=== PATIENT | male | born 1945 | race Caucasian/White ===

== ENCOUNTER 2024-12-21 14:16 | Inpatient (IN) | payer MEDICARE, BC, OTHER ==
[2024-12-21 15:34] LABS: Basophils % (A) 0 %; Eosinophils # (A) 0.2 k/uL (0-0.7); Eosinophils % (A) 2 %; HCT 43.9 % (39.0-53.0); HGB 14.9 gm/dL (13.0-17.5); Lymphocytes # (A) 1.6 k/uL (1.0-4.8); Lymphocytes % (A) 18 %; MCH 32.9 pg (25.0-35.0); MCHC 34.1 g/dL (31.0-37.0); MCV 96.7 fL (80.0-100.0); Monocytes # (A) 0.7 k/uL (0-1.0); Monocytes % (A) 9 %; Neutrophils # (A) 5.8 k/uL (1.3-7.7); Neutrophils % (A) 69 %; Platelet Count 232 k/uL (150-450); RBC 4.54 m/uL (4.30-5.90); RDW 13.2 % (11.5-15.5); WBC 8.5 k/uL (3.8-10.6)
[2024-12-21 15:50] LABS: INR 0.9 (<1.2); Partial Thromboplastin Time 22.8 sec (22.0-30.0); Prothrombin Time 10.3 sec (10.0-12.5)
[2024-12-21 15:54] LABS: Potassium 4.5 mmol/L (3.5-5.1)
[2024-12-21 15:55] LABS: ALT 25 U/L (4-49); AST 25 U/L (17-59); African American GFR (CKD) 71 (>60 ml/min/1.73 sqM); Albumin 3.8 g/dL (3.5-5.0); Alkaline Phosphatase 62 U/L (38-126); Anion Gap 8 mmol/L; Blood Urea Nitrogen 30 mg/dL (9-20); Calcium 9.5 mg/dL (8.4-10.2); Carbon Dioxide 26 mmol/L (22-30); Chloride 103 mmol/L (98-107); Creatine Kinase 83 U/L (55-170); Glucose 82 mg/dL (74-99); Non-African American GFR(CKD) 61 (>60 ml/min/1.73 sqM); Sodium 137 mmol/L (137-145); Total Bilirubin 0.4 mg/dL (0.2-1.3); Total Protein 6.5 g/dL (6.3-8.2)
--- NOTE | 2024-12-21 16:23 | XR ---
EXAMINATION TYPE: XR chest 2V DATE OF EXAM: 12/21/2024 4:12 PM COMPARISON: None TECHNIQUE: XR chest 2V Frontal and lateral views of the chest. CLINICAL INDICATION:Male, 79 years old with history of altered mental status; FINDINGS: Lungs/Pleura: There is no evidence of pleural effusion, focal consolidation, or pneumothorax. Pulmonary vascularity: Pulmonary vascular congestion. Heart/mediastinum: Cardiomediastinal silhouette is enlarged. Musculoskeletal: No acute osseous pathology. IMPRESSION: Cardiomegaly and mild pulmonary vascular congestion. Correlate with BNP for congestive heart failure. [facility], , 12/21/2024 4:21 PM
--- NOTE | 2024-12-21 16:36 | CT ---
EXAMINATION TYPE: CT brain wo con DATE OF EXAM: 12/21/2024 COMPARISON: None CLINICAL INDICATION: Male, 79 years old with history of Neuro deficit, acute, stroke suspected; PHH, neuro def. CT DLP: 1825 mGycm Automated exposure control for dose reduction was used. Findings: The ventricles, basal cisterns and sulci over the convexities are moderately enlarged consistent with moderate generalized atrophy. There is moderate decreased density in the periventricular white matte r consistent with chronic ischemic white matter demyelination. There is a remote lacunar infarct in the right basal ganglia. There is no mass effect or shift to the midline structures. There is no acute intra or extra-axial hemorrhage.. The posterior fossa including the brainstem, fourth ventricle and cerebellar pontine angles appear no rmal. Intraorbital contents appear normal and symmetric. There are minor chronic inflammatory changes in the left maxillary and ethmoid air cells. There is fl uid in the mastoid air cells bilaterally. The calvarium is intact. IMPRESSION: 1. No acute bleed or mass effect. 2. Moderate generalized atrophy and ischemic white matter demyelination. 3. Remote lacunar infarct in the right basal ganglia. 4. Inflammatory changes in the mastoid air cells and paranasal sinuses as described above. [facility], , 12/21/2024 4:33 PM
--- NOTE | 2024-12-21 17:07 | CT ---
EXAMINATION TYPE: CT angio head neck DATE OF EXAM: 12/21/2024 4:39 PM COMPARISON: None. CLINICAL INDICATION: Male, 79 years old with history of Neuro deficit, acute, stroke suspected, Visio n changes, neuro def. TECHNIQUE: CTA scan is performed with axial images are obtained, coronal and sagittal reformatted sugey ges are reviewed. 3-D reconstructed images are created on an independent workstation and reviewed. [place] [facility] [place] reviewed. NASCET criteria was used in interpretation of this exam? Contrast used:65 mL of Isovue 370 without and with IV Contrast, (none if empty) Oral contrast used: (none if empty) CT DLP: 1825 mGycm, Automated exposure control for dose reduction was used. FINDINGS: Carotid/Vascular Structures: There is a 3 vessel arch. Common carotid arteries bifurcate into internal and external carotid arteries without significant valery w limiting stenosis. Right vertebral artery is dominant. Internal carotid arteries and vertebral arteries are patent to the skull base. Cervical of Main: Vertebral basilar system appears normal. Posterior cerebral vasculature is unrema rkable. Internal carotid arteries bifurcate normally into A1 and M1 segments. A2 segments are normal. The anterior communicating artery is patent. Posterior communicating artery is not identified. IMPRESSION: 1. No flow-limiting stenosis bilateral carotid bifurcations. 2. Normal [place] of Main [facility], Workstation: [facility], 12/21/2024 5:04 PM
--- NOTE | 2024-12-21 17:37 | ED ---
General Adult HPI - General Chief complaint: Neuro Symptoms/Deficit Stated complaint: poss stroke Time Seen by Provider: 12/21/24 14:20 Source: family, Caregiver Mode of arrival: ambulatory Limitations: no limitations - History of Present Illness Initial comments: 79-year-old male who presents to the emergency department from the ophthalmology office. Niece had taken the patient into the office as he was reporting to visual disturbance in his eyes. This has been going on for upwards of 3 months. 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 The web site specialist recommended that the patient proceed immediately to the hospital for stroke evaluation. He denies any numbness, tingling or weakness in his extremities. No speech changes. No history of stroke. Patient does not take any blood thinners. Patient cannot provide much history due to his developmental delay but niece at bedside does provide history. No other alleviating, precipitating or modifying factors - Related Data Home Medications Medication Instructions Recorded Confirmed Aspirin EC [Ecotrin Low Dose] 81 mg PO DAILY 12/21/24 12/21/24 Cefdinir 300 mg PO Q12HR 12/21/24 12/21/24 Cholecalciferol (Vitamin D3) 75 mcg PO DAILY 12/21/24 12/21/24 [Vitamin D3 (3000 Iu)] Levothyroxine Sodium [Synthroid] 25 mcg PO DAILY 12/21/24 12/21/24 Losartan [Cozaar] 50 mg PO DAILY 12/21/24 12/21/24 Allergies Allergy/AdvReac Type Severity Reaction Status Date / Time No Known Allergies Allergy Verified 12/21/24 17:41 Review of Systems ROS Statement: Those systems with pertinent positive or pertinent negative responses have been documented in the HPI. ROS Other: All systems not noted in ROS Statement are negative. Past Medical History Past Medical History: Unable to Obtain Additional Past Medical History / Comment(s): "born handicapped" History of Any Multi-Drug Resistant Organisms: None Reported Past Surgical History: Unable to Obtain Additional Past Surgical History / Comment(s): cataract sx Past Psychological History: No Psychological Hx Reported Smoking Status: Never smoker Past Alcohol Use History: None Reported Past Drug Use History: None Reported General Exam Limitations: no limitations Course Vital Signs 12/21/24 12/21/24 12/21/24 14:18 16:02 17:58 Temperature 97.8 F 98.3 F 97.8 F Pulse Rate 75 75 73 Respiratory 20 18 20 Rate Blood Pressure 143/88 149/91 146/91 O2 Sat by Pulse 94 L 97 97 Oximetry Medical Decision Making - Medical Decision Making Was pt. sent in by a medical professional or institution (, MORGAN, OPHTHALMIC DISPENSER, urgent care, hospital, or custodial...) When possible be specific @ -[No] Did you speak to anyone other than the patient for history (EMS, parent, family, police, friend...)? What history was obtained from this source @ -[No] Did you review nursing and triage notes (agree or disagree)? Why? @ -[I reviewed and agree with nursing and triage notes] Were old charts reviewed (outside hosp., previous admission, EMS record, old EKG, old radiological studies, urgent care reports/EKG's, custodial records)? Report findings @ -[No old charts were reviewed] Differential Diagnosis (chest pain, altered mental status, abdominal pain women, abdominal pain men, vaginal bleeding, weakness, fever, dyspnea, syncope, headache, dizziness, GI bleed, back pain, seizure, CVA, palpatations, mental health, musculoskeletal)? @ -[not applicable] EKG interpreted by me (3pts min.). @ -Yes and demonstrates sinus rhythm with a rate of 72. Parable 189. QRS 94. QTc of 409. Inverted T wave in lead III and aVF. No acute ST segment elevations X-rays interpreted by me (1pt min.). @ -[None done] CT interpreted by me (1pt min.). @ -[None done] U/S interpreted by me (1pt. min.). @ -[None done] What testing was considered but not performed or refused? (CT, X-rays, U/S, labs)? Why? @ -[None] What meds were considered but not given or refused? Why? @ -[None] Did you discuss the management of the patient with other professionals (professionals i.e. , MORGAN, OPHTHALMIC DISPENSER, lab, RT, psych nurse, social service assistant, chief crew scheduler, teacher, flight communications officer, pillowcase sewer)? Give summary @ -[No] Was smoking cessation discussed for >3mins.? @ -[No] Was critical care preformed (if so, how long)? @ -[No] Were there social determinants of health that impacted care today? How? (Homelessness, low income, unemployed, alcoholism, drug addiction, transportation, low edu. Level, literacy, decrease access to med. care, snf, rehab)? @ -[No] Was there de-escalation of care discussed even if they declined (Discuss DNR or withdrawal of care, Hospice)? DNR status @ -[No] What co-morbidities impacted this encounter? (DM, HTN, Smoking, COPD, CAD, Cancer, CVA, ARF, Chemo, Hep., AIDS, mental health diagnosis, sleep apnea, mor bid obesity)? @ -[None] Was patient admitted / discharged? Hospital course, mention meds given and route, prescriptions, significant lab abnormalities, going to OR and other pertinent info. @ -[hospital course] Undiagnosed new problem with uncertain prognosis? @ -[No] Drug Therapy requiring intensive monitoring for toxicity (Heparin, Nitro, Insulin, Cardizem)? @ -[No] Were any procedures done? @ -[No] Diagnosis/symptom? @ -[default] Acute, or Chronic, or Acute on Chronic? @ -[default] Uncomplicated (without systemic symptoms) or Complicated (systemic symptoms)? @ -[default] Side effects of treatment? @ -[No] Exacerbation, Progression, or Severe Exacerbation? @ -[No] Poses a threat to life or bodily function? How? (Chest pain, USA, GA, pneumonia, PE, COPD, DKA, ARF, appy, cholecystitis, CVA, Diverticulitis, Homicidal, Suicidal, threat to staff... and all critical care pts) @ -[No] - Lab Data Result diagrams: 12/21/24 15:16 12/21/24 15:16 Lab Results 12/21/24 12/21/24 12/21/24 Range/Units 15:16 15:16 15:16 WBC 8.5 (3.8-10.6) k/uL RBC 4.54 (4.30-5.90) m/uL Hgb 14.9 (13.0-17.5) gm/dL Hct 43.9 (39.0-53.0) % MCV 96.7 (80.0-100.0) fL MCH 32.9 (25.0-35.0) pg MCHC 34.1 (31.0-37.0) g/dL RDW 13.2 (11.5-15.5) % Plt Count 232 (150-450) k/uL MPV 8.0 Neutrophils % 69 % Lymphocytes % 18 % Monocytes % 9 % Eosinophils % 2 % Basophils % 0 % Neutrophils # 5.8 (1.3-7.7) k/uL Lymphocytes # 1.6 (1.0-4.8) k/uL Monocytes # 0.7 (0-1.0) k/uL Eosinophils # 0.2 (0-0.7) k/uL Basophils # 0.0 (0-0.2) k/uL PT 10.3 (10.0-12.5) sec INR 0.9 (<1.2) APTT 22.8 (22.0-30.0) sec Sodium 137 (137-145) mmol/L Potassium 4.5 (3.5-5.1) mmol/L Chloride 103 (98-107) mmol/L Carbon Dioxide 26 (22-30) mmol/L Anion Gap 8 mmol/L BUN 30 H (9-20) mg/dL Creatinine 1.15 (0.66-1.25) mg/dL Est GFR (CKD-EPI)AfAm 71 (>60 ml/min/1.73 sqM) Est GFR (CKD-EPI)NonAf 61 (>60 ml/min/1.73 sqM) Glucose 82 (74-99) mg/dL Calcium 9.5 (8.4-10.2) mg/dL Total Bilirubin 0.4 (0.2-1.3) mg/dL AST 25 (17-59) U/L ALT 25 (4-49) U/L Alkaline Phosphatase 62 (38-126) U/L Creatine Kinase 83 (55-170) U/L Troponin I (0.000-0.034) ng/mL Total Protein 6.5 (6.3-8.2) g/dL Albumin 3.8 (3.5-5.0) g/dL 12/21/24 Range/Units 15:16 WBC (3.8-10.6) k/uL RBC (4.30-5.90) m/uL Hgb (13.0-17.5) gm/dL Hct (39.0-53.0) % MCV (80.0-100.0) fL MCH (25.0-35.0) pg MCHC (31.0-37.0) g/dL RDW (11.5-15.5) % Plt Count (150-450) k/uL MPV Neutrophils % % Lymphocytes % % Monocytes % % Eosinophils % % Basophils % % Neutrophils # (1.3-7.7) k/uL Lymphocytes # (1.0-4.8) k/uL Monocytes # (0-1.0) k/uL Eosinophils # (0-0.7) k/uL Basophils # (0-0.2) k/uL PT (10.0-12.5) sec INR (<1.2) APTT (22.0-30.0) sec Sodium (137-145) mmol/L Potassium (3.5-5.1) mmol/L Chloride (98-107) mmol/L Carbon Dioxide (22-30) mmol/L Anion Gap mmol/L BUN (9-20) mg/dL Creatinine (0.66-1.25) mg/dL Est GFR (CKD-EPI)AfAm (>60 ml/min/1.73 sqM) Est GFR (CKD-EPI)NonAf (>60 ml/min/1.73 sqM) Glucose (74-99) mg/dL Calcium (8.4-10.2) mg/dL Total Bilirubin (0.2-1.3) mg/dL AST (17-59) U/L ALT (4-49) U/L Alkaline Phosphatase (38-126) U/L Creatine Kinase (55-170) U/L Troponin I <0.012 (0.000-0.034) ng/mL Total Protein (6.3-8.2) g/dL Albumin (3.5-5.0) g/dL Disposition Clinical Impression: Cerebrovascular accident (CVA), Quadrantanopsia Disposition: ADMITTED IP TO THIS [facility] Condition: Stable Is patient prescribed a controlled substance at d/c from ED?: No Referrals: Olive Raymundo MD [Primary Care Provider] - 1-2 days Time of Disposition: 18:19 Decision to Admit Reason: Admit from EC Decision Date: 12/21/24 Decision Time: 18:19
[2024-12-21] MEDS: ASPIRIN 325 MG TAB PO STA (19:01)
[2024-12-21] MEDS: ATORVASTATIN 40 MG TAB PO SCH (19:01)
[2024-12-21] MEDS: CEFDINIR 300 MG CAP PO SCH (20:28)
[2024-12-22] MEDS: LEVOTHYROXINE 25 MCG TAB PO SCH (06:42)
[2024-12-22] MEDS: ASPIRIN 81 MG PO SCH (09:22)
[2024-12-22] MEDS: LOSARTAN 50 MG TAB PO SCH (09:22)
[2024-12-22] MEDS: CHOLECALCIFEROL 25 MCG (1000 IU) TABLET PO SCH (09:22)
--- NOTE | 2024-12-22 10:07 | P.HPIM ---
History of Present Illness H&P Date: 12/22/24 Norman Whitaker, is a 79-year-old male who presented to [facility] emergency room sent in from the ophthalmology office due to vision deficit He was evaluated in the emergency room vital examination on presentation revealed temp 97.7, heart rate 83, respiratory rate 18, blood pressure 135/89 with a pulse ox of 96% on room air Laboratory data reveals white blood cell 8.5, hemoglobin 14.9, creatinine 1.15 and bun 30 Testing in the emergency room revealed CTA showing no flow-limiting stenosis bilateral carotid bifurcations and normal [place] of Main CT scan showing no acute bleed or mass effect moderate generalized atrophy and ischemic white matter demyelination remote [place] nerve infarct in the right basal ganglia inflammatory changes in the mastoid air cells impair nasal sinuses as described above Patient was admitted to medical floor for further evaluation and treatment. Neurology services have been consulted. PT OT services consulted Past medical history is significant for thyroid disorder. Developmental delay, recent sinusitis, hypothyroidism and essential hypertension. On review of systems patient is alert and oriented x 3. Patient denies any nausea vomiting or diarrhea. Patient denies chest pain or shortness of breath Review of Systems Please refer to HPI otherwise unremarkable Past Medical History Past Medical History: Thyroid Disorder Additional Past Medical History / Comment(s): "born handicapped" History of Any Multi-Drug Resistant Organisms: None Reported Past Surgical History: Unable to Obtain Additional Past Surgical History / Comment(s): cataract sx Past Anesthesia/Blood Transfusion Reactions: No Reported Reaction, Unable to Obtain Past Psychological History: No Psychological Hx Reported, Unable to Obtain Smoking Status: Never smoker Past Alcohol Use History: None Reported Past Drug Use History: None Reported Medications and Allergies Home Medications Medication Instructions Recorded Confirmed Type Aspirin EC [Ecotrin Low Dose] 81 mg PO DAILY 12/21/24 12/21/24 History Cefdinir 300 mg PO Q12HR 12/21/24 12/21/24 History Cholecalciferol (Vitamin D3) 75 mcg PO DAILY 12/21/24 12/21/24 History [Vitamin D3 (3000 Iu)] Levothyroxine Sodium [Synthroid] 25 mcg PO DAILY 12/21/24 12/21/24 History Losartan [Cozaar] 50 mg PO DAILY 12/21/24 12/21/24 History Allergies Allergy/AdvReac Type Severity Reaction Status Date / Time No Known Allergies Allergy Verified 12/21/24 17:41 Physical Exam Vitals: Vital Signs Temp Pulse Pulse Resp BP BP Pulse Ox 12/22/24 04:00 97.7 F 75 15 110/69 97 12/22/24 02:00 67 19 12/22/24 00:00 98.3 F 96 16 121/74 98 12/21/24 21:24 97.7 F 67 19 144/93 96 12/21/24 20:16 70 18 118/80 93 L 12/21/24 18:59 71 20 141/93 95 12/21/24 17:58 97.8 F 73 20 146/91 97 12/21/24 16:02 98.3 F 75 18 149/91 97 12/21/24 14:18 97.8 F 75 20 143/88 94 L Intake and Output 12/21/24 12/22/24 12/22/24 22:59 06:59 14:59 Intake Total 240 480 Balance 240 480 Intake: Oral 240 480 Other: Voiding Method Urinal Urinal Weight 79.379 kg 79.5 kg In general patient is alert and oriented x 3 in no distress HEENT head normocephalic and atraumatic Neck is supple no JVD no goiter no lymphadenopathy no carotid bruit Chest examination is clear to auscultation no crackles no wheezing Cardiac exam reveals regular heart sounds S1 and S2 no gallops no murmurs Abdomen is soft nontender no organomegaly with normal bowel sounds Extremity exam reveals no edema no cyanosis or clubbing Neurological examination reveals no gross focal deficits Results CBC & Chem 7: 12/21/24 15:16 12/21/24 15:16 Labs: Abnormal Lab Results - Last 24 Hours (Table) 12/21/24 Range/Units 15:16 BUN 30 H (9-20) mg/dL Thrombosis Risk Factor Assmnt - Choose All That Apply Any of the Below Risk Factors Present?: Yes Each Factor Represents 1 point: Obesity (BMI >25) Other Risk Factors: Yes Each Risk Factor Represents 3 Points: Age 75 years or older Other congenital or acquired thrombophilia - If yes, enter type in comment: No Thrombosis Risk Factor Assessment Total Risk Factor Score: 4 Thrombosis Risk Factor Assessment Level: Moderate Risk Assessment and Plan Assessment: 1. Possible CVA with visual disturbance. MRI of the brain has been ordered per neurology 2. History of recent sinusitis maintained on Omnicef 3. Developmental delay 4. History of hypothyroidism. 5. History of essential hypertension 6. History of hyperlipidemia DVT prophylaxis Lovenox. GI prophylaxis Pepcid Neurology services consulted 2D echo ordered MRI of the brain ordered Time with Patient: Greater than 30 (Greater than 60% of the total time spent in counseling and coordination of care)
[2024-12-22 11:06] LABS: Chol/HDL Ratio 4.16 Ratio; LDL Cholesterol,Calculated 100.3 mg/dL (0.0-131.0)
--- NOTE | 2024-12-22 12:29 | P.CNNES ---
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 The niece is at bedside who provides the history. Stated that patient had routine ophthalmology visit yesterday and it seems that he had visual disturbance on examination of the left upper quadrant and they are concerned about a stroke. She stated that he had a cataract removed about 2 years ago. Per the ED note the niece notified the ED physician that his visual disturbance has been going on upward for 3-month. Patient does not have any focal weakness numbness or speech changes the knees noticed that he related to the knees. He does stated the additive mental delay and the niece takes care of him. He does not have any history of stroke. Does not have any history of A- fib or flutter that she is aware of. Seems to the patient is on home dose of aspirin 81 mg daily. Some of the workup during this hospital visit consisted of: Lipid panel: Triglycerides 114, cholesterol at 162, LDL is 100, HDL is 38 I reviewed the rest of the lab workup CT of the head is reported as no acute bleed or mass effect. Moderate gen eralized atrophy and ischemic white matter demyelination. Remote lacunar infarct in the right basal ganglia. I personally reviewed the CT and I agree there is no acute or subacute ischemic stroke. CT angiography of the head and neck is reported as no flow-limiting stenosis bilateral carotid bifurcation. Normal [place] of Main. Review of Systems Limited but as per HPI. Past Medical History Past Medical History: Thyroid Disorder Additional Past Medical History / Comment(s): "born handicapped" History of Any Multi-Drug Resistant Organisms: None Reported Past Surgical History: Unable to Obtain Additional Past Surgical History / Comment(s): cataract sx Past Anesthesia/Blood Transfusion Reactions: No Reported Reaction, Unable to Obtain Past Psychological History: No Psychological Hx Reported, Unable to Obtain Smoking Status: Never smoker Past Alcohol Use History: None Reported Past Drug Use History: None Reported Medications and Allergies Home Medications Medication Instructions Recorded Confirmed Type Aspirin EC [Ecotrin Low Dose] 81 mg PO DAILY 12/21/24 12/21/24 History Cefdinir 300 mg PO Q12HR 12/21/24 12/21/24 History Cholecalciferol (Vitamin D3) 75 mcg PO DAILY 12/21/24 12/21/24 History [Vitamin D3 (3000 Iu)] Levothyroxine Sodium [Synthroid] 25 mcg PO DAILY 12/21/24 12/21/24 History Losartan [Cozaar] 50 mg PO DAILY 12/21/24 12/21/24 History Allergies Allergy/AdvReac Type Severity Reaction Status Date / Time No Known Allergies Allergy Verified 12/21/24 17:41 Physical Examination - Vital Signs Vital Signs: Vital Signs Temp Pulse Pulse Resp BP BP Pulse Ox 12/22/24 09:00 97.7 F 93 18 135/89 96 12/22/24 04:00 97.7 F 75 15 110/69 97 12/22/24 02:00 67 19 12/22/24 00:00 98.3 F 96 16 121/74 98 12/21/24 21:24 97.7 F 67 19 144/93 96 12/21/24 20:16 70 18 118/80 93 L 12/21/24 18:59 71 20 141/93 95 12/21/24 17:58 97.8 F 73 20 146/91 97 12/21/24 16:02 98.3 F 75 18 149/91 97 12/21/24 14:18 97.8 F 75 20 143/88 94 L Intake and Output 12/21/24 12/22/24 12/22/24 22:59 06:59 14:59 Intake Total 240 480 250 Balance 240 480 250 Intake: IV 10 Invasive Line 1 10 Oral 240 480 240 Other: Voiding Method Urinal Urinal Toilet Urinal # Voids 1 # Bowel Movements 1 Weight 79.379 kg 79.5 kg General: Sitting in a recliner chair and is not in acute distress. Neuro: Very Limited. Patient is deaf and had developemental delay. Patient is oriented to self and with option he correctly stated that he is in the hospital. He followed very few simple commands and that with multiple attempts by myself and I needed that his needs assistance for the examination The pupils are round about 3 mm and reactive to light bilaterally. Visual vazquez with the limitation seems full to confrontation. Extraocular movement is intact. No facial weakness. Motor: With the limitation of the strength examination patient does not have any focal deficit. Normal tone and bulk Sensation appears normal to touch throughout Reflexes is 2 positive throughout. Plantars are mute bilaterally. Results - Laboratory Findings CBC and BMP: 12/21/24 15:16 12/21/24 15:16 Abnormal Lab Findings: Abnormal Labs 12/21/24 12/22/24 15:16 06:06 BUN 30 H HDL Cholesterol 38.90 L Assessment and Plan Assessment: This is a 79-year-old gentleman who is demented locally and who presents to the emergency department on 12/21/2024 per the ophthalmology request because of left homonymous superior quadrant anposia on their examination. It seem niece notified ED team his vision problems has been at least 3 months or more. On my limitation of examination normal visual vazquez. Questionable left homonymous upper quandrant anposia: Rule out subacute to chronic stroke. This does not seems acute on my examination it seems he has normal visual vazquez from limitation of examination. No focal deficit. CT head is negative for acute stroke. Old lacunar stroke on the right basal ganglia on recent CT head Deaf Demented delay History of cataract resection Plan: I ordered MRI of the brain. Patient was given aspirin 325 once in the ED. I agree at this time just for the patient to be on monotherapy of aspirin 81 mg daily until we obtain the MRI of the brain and if it shows any acute or subacute stroke then we will consider dual antiplatelet but will hold off at this time. He is on Lipitor 40 mg daily 2D echo was ordered by the primary team Continue neurochecks Cardiac monitoring PT and OT and PROGRAM ANALYST are consulted The niece is asking for assistance if possible for the patient care since she feels too much taking care of him and she cannot leave him by self at home. I spoke with the child welfare caseworker regarding this and she will try to assist. For DVT prophylaxis the patient is on Lovenox Will defer the rest of the medical management to primary and other specialist The plan discussed with the patient niece who is at bedside. Thank you for the consultation Dr. Martin will resume neurology service tomorrow AM Time with Patient: Greater than 30
[2024-12-22] MEDS: DOCUSATE 100 MG CAP PO SCH (14:03)
[2024-12-22] MEDS: LACTULOSE 20 GM/30 ML CUP PO ONE (14:03)
--- NOTE | 2024-12-22 18:23 | MR ---
EXAMINATION TYPE: MR brain wo con DATE OF EXAM: 12/22/2024 6:16 PM COMPARISON: 12/21/2024. CLINICAL INDICATION: Male, 79 years old with history of vision change; PHH, vision change TECHNIQUE: Multi planar, multi sequence imaging was performed through the brain including: T1, T2, In version recovery, Diffusion weighted imaging, and gradient echo imaging. No gadolinium was given. FINDINGS: Mild cerebral atrophy with proportional dilation of ventricular system. Scattered foci of high T2 s ignal intensity are seen within the periventricular white matter. Midline structures show no abnormal ity. Diffusion-weighted imaging shows no evidence of restricted diffusion. The susceptibility weighte d images do not reveal any evidence for micro-hemorrhage. The bone marrow signal is within normal limits. Paranasal sinuses and mastoid air cells: . Mild paranasal sinus disease in the left maxillary sinus a nd ethmoid air cells posteriorly. Visualized orbits: Bilateral aphakia IMPRESSION: 1. No evidence of intracranial mass or acute/subacute infarct. 2. Nonspecific white matter changes, likely secondary to small vessel ischemic disease. [facility], , 12/22/2024 6:20 PM
[2024-12-22] MEDS: PRIMIDONE 50 MG TAB PO SCH (20:27)
[2024-12-23 06:33] LABS: Basophils % (A) 1 %; Eosinophils # (A) 0.2 k/uL (0-0.7); Eosinophils % (A) 2 %; HCT 43.9 % (39.0-53.0); HGB 14.5 gm/dL (13.0-17.5); Lymphocytes # (A) 1.5 k/uL (1.0-4.8); Lymphocytes % (A) 18 %; MCH 32.1 pg (25.0-35.0); MCV 97.2 fL (80.0-100.0); Mean Platelet Volume 8.1; Monocytes # (A) 0.7 k/uL (0-1.0); Monocytes % (A) 9 %; Neutrophils # (A) 5.7 k/uL (1.3-7.7); Neutrophils % (A) 69 %; Platelet Count 228 k/uL (150-450); RBC 4.52 m/uL (4.30-5.90); RDW 13.2 % (11.5-15.5); WBC 8.3 k/uL (3.8-10.6)
[2024-12-23 07:48] LABS: ALT 19 U/L (4-49); AST 22 U/L (17-59); African American GFR (CKD) 72 (>60 ml/min/1.73 sqM); Albumin 3.3 g/dL (3.5-5.0); Alkaline Phosphatase 56 U/L (38-126); Anion Gap 8 mmol/L; Blood Urea Nitrogen 27 mg/dL (9-20); Calcium 8.8 mg/dL (8.4-10.2); Carbon Dioxide 22 mmol/L (22-30); Chloride 104 mmol/L (98-107); Glucose 85 mg/dL (74-99); Non-African American GFR(CKD) 62 (>60 ml/min/1.73 sqM); Potassium 4.7 mmol/L (3.5-5.1); Sodium 134 mmol/L (137-145); Total Bilirubin 0.5 mg/dL (0.2-1.3); Total Protein 5.8 g/dL (6.3-8.2)
[2024-12-23] MEDS: FAMOTIDINE 20 MG TAB PO SCH (09:54)
[2024-12-23] MEDS: ENOXAPARIN 40 MG/0.4 ML SYRINGE SQ SCH (09:54)
--- NOTE | 2024-12-23 12:42 | P.PN ---
Subjective Progress Note Date: 12/23/24 Norman Whitaker, is a 79-year-old male who presented to [facility] emergency room sent in from the ophthalmology office due to vision deficit He was evaluated in the emergency room vital examination on presentation revealed temp 97.7, heart rate 83, respiratory rate 18, blood pressure 135/89 with a pulse ox of 96% on room air Laboratory data reveals white blood cell 8.5, hemoglobin 14.9, creatinine 1.15 and bun 30 Testing in the emergency room revealed CTA showing no flow-limiting stenosis bilateral carotid bifurcations and normal [place] of Main CT scan showing no acute bleed or mass effect moderate generalized atrophy and ischemic white matter demyelination remote Haja nerve infarct in the right basal ganglia inflammatory changes in the mastoid air cells impair nasal sinuses as described above Patient was admitted to medical floor for further evaluation and treatment. Ne urology services have been consulted. PT OT services consulted Past medical history is significant for thyroid disorder. Developmental delay, recent sinusitis, hypothyroidism and essential hypertension. On review of systems patient is alert and oriented x 3. Patient denies any nausea vomiting or diarrhea. Patient denies chest pain or shortness of breath On 12/23/2024 patient was seen and examined on the medical floor he is alert and oriented x 3 in no apparent distress there is no fever or chills no headache or dizziness no chest pain no shortness of breath no cough no nausea or vomiting no abdominal pain no diarrhea and no urinary symptoms. At this time we are awaiting input from neurology, awaiting echocardiogram results. Objective - Vital Signs Vital signs: Vital Signs Temp 98.3 F 12/23/24 04:47 Pulse 72 12/23/24 04:47 Resp 18 12/23/24 04:47 BP 120/82 12/23/24 04:47 Pulse Ox 94 L 12/23/24 04:47 FiO2 Intake & Output 12/22/24 12/23/24 12/23/24 18:59 06:59 18:59 Intake Total 250 250 Balance 250 250 Weight 79.6 kg Intake: IV 10 10 Invasive Line 1 10 10 Oral 240 240 Other: Voiding Method Toilet Toilet Urinal Urinal # Voids 1 1 # Bowel Movements 1 - Labs CBC & Chem 7: 12/23/24 05:52 12/23/24 05:52 Labs: Abnormal Lab Results - Last 24 Hours (Table) 12/22/24 Range/Units 06:06 HDL Cholesterol 38.90 L (40.00-60.00) mg/dL Assessment and Plan Assessment: 1. Possible CVA with visual disturbance. MRI of the brain has been ordered per neurology 2. History of recent sinusitis maintained on Omnicef 3. Developmental delay 4. History of hypothyroidism. 5. History of essential hypertension 6. History of hyperlipidemia DVT prophylaxis Lovenox. GI prophylaxis Pepcid Neurology services consulted 2D echo ordered MRI of the brain ordered
--- NOTE | 2024-12-23 15:15 | P.PN ---
Subjective Progress Note Date: 12/23/24 The patient is a 79-year-old male who is seen in neurologic follow-up on December 23, 2024, in cross coverage for Dr. Walter, in collaboration with Jeimy Ludwig, via teleneurology. Please see Dr. Walter's original consultation for complete history. This morning, the patient is seated in his bedside chair. He reports no changes. He has difficulty explaining why he came into the hospital. There are no family members present at the bedside. We did discuss the results of the patient's MRI, with the patient. Objective - Vital Signs Vital signs: Vital Signs Temp 98.3 F 12/23/24 04:47 Pulse 94 12/23/24 09:16 Resp 20 12/23/24 09:16 BP 133/60 12/23/24 09:16 Pulse Ox 93 L 12/23/24 09:16 FiO2 Intake & Output 12/22/24 12/23/24 12/23/24 18:59 06:59 18:59 Intake Total 250 250 240 Balance 250 250 240 Weight 79.6 kg Intake: IV 10 10 Invasive Line 1 10 10 Oral 240 240 240 Other: Voiding Method Toilet Toilet Toilet Urinal Urinal Urinal # Voids 1 1 # Bowel Movements 1 - Exam General: Patient is seated in the bedside chair. He is well-nourished, well- developed and in no acute distress. HEENT: Head is atraumatic, normocephalic. Fundus not visualized. There is no scleral icterus. Mucous membranes are moist. Heart: Regular rate and rhythm Extremities: Without edema Neurological examination Mental status: Not formally assessed at this time. The patient is able to answer some simple questions. He is reportedly deaf. He is able to follow some simple commands. Cranial nerves: 2-12 grossly intact. Motor: Bioanalyst strength is symmetric at 5/5 bilaterally Coordination: There is a mild tremor of the bilateral upper extremities, R > L, noted with arms extended and at rest. There is no pronator drift. Finger -to-nose testing is intact. - Labs CBC & Chem 7: 12/23/24 05:52 12/23/24 05:52 Labs: Abnormal Lab Results - Last 24 Hours (Table) 12/22/24 12/23/24 Range/Units 06:06 05:52 Sodium 134 L (137-145) mmol/L BUN 27 H (9-20) mg/dL Total Protein 5.8 L (6.3-8.2) g/dL Albumin 3.3 L (3.5-5.0) g/dL HDL Cholesterol 38.90 L (40.00-60.00) mg/dL Assessment and Plan Assessment: 1. Questionable left homonymous upper quandrant anposia: Rule out subacute to chronic stroke. CT head is negative for acute stroke. MRI of the brain is negative for acute ischemia. These images have been personally viewed. 2. Deafness 3. Developmental delay 4. History of cataract resection Plan: 1. Consider continuation of aspirin 81 mg daily for stroke prevention 2. Continue statin therapy 3. Care management for safe discharge plan 4. Await 2D echocardiogram report Time with Patient: Less than 30 (25 minutes were spent caring for this patient today including, obtaining history, examining the patient, reviewing imaging, chart documentation, labs and creating this note)
[2024-12-23 15:48] VITALS: RESP 16
[2024-12-23] MEDS ORDERED: BENZOCAINE/MENTHOL LOZENG 1 EACH LOZENGE MUCOUS MEM PRN (18:03)
--- NOTE | 2024-12-24 07:10 | CA ---
Transthoracic Echo Report Name: Norman Whitaker Age: 79 Gender: M : 1945 Exam Date: 12/23/2024 10:24 Exam Location: [place] [facility] Ht (in): 64 Wt (lb): 175 Ordering Physician: Olive Raymundo MD Attending/Referring Phys: Airplane Inspector Lala Romo RDCS Procedure CPT: Indications: medical management Cardiac Hx: Technical Quality: Technically difficult study Contrast 1: Definity Total Dose (mL): 2 Contrast 2: Total Dose (mL): MEASUREMENTS (Male / Female) Normal Values 2D ECHO LV Diastolic Diameter PLAX 5.5 cm 4.2 - 5.9 / 3.9 - 5.3 cm LV Systolic Diameter PLAX 4.1 cm IVS Diastolic Thickness 1.2 cm 0.6 - 1.0 / 0.6 - 0.9 cm LVPW Diastolic Thickness 1.5 cm 0.6 - 1.0 / 0.6 - 0.9 cm LV Relative Wall Thickness 0.5 RV Internal Dim ED PLAX 3.5 cm LA Systolic Diameter LX 3.3 cm 3.0 - 4.0 / 2.7 - 3.8 cm LA Volume 58.4 cm??? 18 - 58 / 22 - 52 cm??? LA Volume Index 30.4 cm???/m??? 16 - 28 cm???/m??? M-MODE Aortic Root Diameter MM 3.8 cm AV Cusp Separation MM 1.8 cm DOPPLER AV Peak Velocity 115.4 cm/s AV Peak Gradient 5.3 mmHg AI Peak Velocity 341.9 cm/s AI Peak Gradient 46.8 mmHg AI Pressure Half Time 927.2 ms MV Area PHT 2.9 cm??? Mitral E Point Velocity 47.9 cm/s Mitral A Point Velocity 83.9 cm/s Mitral E to A Ratio 0.6 MV Deceleration Time 257.5 ms TR Peak Velocity 230.1 cm/s TR Peak Gradient 21.2 mmHg Right Ventricular Systolic Press 26.2 mmHg FINDINGS Left Ventricle Left ventricular ejection fraction is estimated at 50-55 %. Left ventricular cavity size normal. Mildly increased septal wall thickness. No obvious regional wall motion abnormalities. Right Ventricle Mild right ventricular dilatation. Right ventricular systolic pressure within normal limits. Right Atrium Normal right atrial size. No right atrial thrombus or mass seen. Left Atrium Mildly increased left atrial volume. Mildly increased left atrial area. No left atrial thrombus or mass present. Mitral Valve Structurally normal mitral valve. Trace to mild mitral regurgitation. No mitral stenosis. No evidence for mitral valve prolapse. Aortic Valve Trileaflet aortic valve. Aortic valve sclerosis. Mild aortic regurgitation. Tricuspid Valve Structurally normal tricuspid valve. Mild tricuspid regurgitation. Pulmonic Valve Structurally normal pulmonic valve. No pulmonic regurgitation. Pericardium No pericardial effusion. 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 Ronak Mesa MD (Electronically Signed) Final Date: 24 December 2024 07:09
[2024-12-24 09:46] VITALS: BP 119/79; PULSE 69; TEMP 97.5
--- NOTE | 2024-12-24 10:24 | P.DS ---
Providers Date of admission: 12/22/24 12:51 Expected date of discharge: 12/24/24 Attending physician: Olive Raymundo Consults: 12/21/24 18:24 Consult Physician Urgent Consulting Provider: Abel Walter Consult Reason/Comments: left superior quadrantanopsia, CVA Do you want consulting provider notified?: Yes Primary care physician: Olive Raymundo [facility] Course: Discharge diagnosis 1. Possible CVA with visual disturbance. MRI of the brain has been ordered per neurology 2. History of recent sinusitis maintained on Omnicef 3. Developmental delay 4. History of hypothyroidism. 5. History of essential hypertension 6. History of hyperlipidemia Hospital course Norman Whitaker, is a 79-year-old male who presented to [facility] emergency room sent in from the ophthalmology office due to vision deficit He was evaluated in the emergency room vital examination on presentation revealed temp 97.7, heart rate 83, respiratory rate 18, blood pressure 135/89 with a pulse ox of 96% on room air Laboratory data reveals white blood cell 8.5, hemoglobin 14.9, creatinine 1.15 and bun 30 Testing in the emergency room revealed CTA showing no flow-limiting stenosis bilateral carotid bifurcations and normal [place] of Main CT scan showing no acute bleed or mass effect moderate generalized atrophy and ischemic white matter demyelination remote [place] nerve infarct in the right basal ganglia inflammatory changes in the mastoid air cells impair nasal sinuses as described above Patient was admitted to medical floor for further evaluation and treatment. Neurology services have been consulted. PT OT services consulted Past medical history is significant for thyroid disorder. Developmental delay, recent sinusitis, hypothyroidism and essential hypertension. On review of systems patient is alert and oriented x 3. Patient denies any nausea vomiting or diarrhea. Patient denies chest pain or shortness of breath On 12/23/2024 patient was seen and examined on the medical floor he is alert and oriented x 3 in no apparent distress there is no fever or chills no headache or dizziness no chest pain no shortness of breath no cough no nausea or vomiting no abdominal pain no diarrhea and no urinary symptoms. At this time we are awaiting input from neurology, awaiting echocardiogram results. On 12/24/2024 patient is alert and oriented x 3. Patient's niece at bedside. Echocardiogram completed showing an EF of 50 to 55%. Per neurology services MRI of the brain is negative continue aspirin 81 mg and statin therapy. Patient denies chest pain or shortness of breath. Patient denies nausea vomiting or diarrhea. Patient denies any urinary burning or frequency Patient Condition at Discharge: Stable Plan - Discharge Summary Discharge Rx Participant: No New Discharge Prescriptions: New Atorvastatin [Lipitor] 40 mg PO DAILY 30 Days #30 tab Primidone [Mysoline] 50 mg PO 2100 30 Days #30 tab Continue Aspirin EC [Ecotrin Low Dose] 81 mg PO DAILY Levothyroxine Sodium [Synthroid] 25 mcg PO DAILY Cholecalciferol (Vitamin D3) [Vitamin D3 (3000 Iu)] 75 mcg PO DAILY Cefdinir 300 mg PO Q12HR Losartan [Cozaar] 50 mg PO DAILY Discharge Medication List Aspirin EC [Ecotrin Low Dose] 81 mg PO DAILY 12/21/24 [History] Cefdinir 300 mg PO Q12HR 12/21/24 [History] Cholecalciferol (Vitamin D3) [Vitamin D3 (3000 Iu)] 75 mcg PO DAILY 12/21/24 [History] Levothyroxine Sodium [Synthroid] 25 mcg PO DAILY 12/21/24 [History] Losartan [Cozaar] 50 mg PO DAILY 12/21/24 [History] Atorvastatin [Lipitor] 40 mg PO DAILY 30 Days #30 tab 12/24/24 [Rx] Primidone [Mysoline] 50 mg PO 2100 30 Days #30 tab 12/24/24 [Rx] Follow up Appointment(s)/Referral(s): Olive Raymundo MD [Primary Care Provider] - 1-2 days Activity/Diet/Wound Care/Special Instructions: activity as tolerated Diet heart healthy Discharge Disposition: HOME SELF-CARE
--- NOTE | 2024-12-26 16:12 | CDI ---
Documentation Clarification Form Date: 12/26/2024 03:54:51 PM From: Alee Ruiz RN, CCDS Email: [email or web address] Admit Date: 12/22/2024 12:51:00 PM Patient Name: Norman Whitaker Visit Number: [id number] Discharge Date: 12/24/2024 11:48:00 AM ATTENTION: The Clinical Documentation Specialists (CDI) and [facility] Coding Staff appreciate your assistance in clarifying documentation. Please respond to the clarification below the line at the bottom and electronically sign. The CDI & [facility] Coding staff will review the response and follow-up if needed. Please note: Queries are made part of the Legal Health Record. If you have any questions, please contact the author of this message via ITS. Doctor Olvie Raymundo Developmental delay and mental delay are documented in the progress notes. Additional clarification regarding this diagnosis is requested. Patient history/risk factors: Developmental delay, HTN and thyroid disorder Clinical Indicators: ED: "born handicapped. Patient cannot provide much history due to his developmental delay but niece at bedside does provide history." 12/22 Neurology consult: "deaf at baseline with the mental delay who presents for Ophthalmology request because of visual disturbance to rule out stroke. The niece is asking for assistance if possible for patient care since she feels it's too much taking care of him and she cannot leave him by self at home. Spoke with the case specialist regarding this and she will try to assist." Discharge summary: "Possible CVA with visual disturbance. Developmental delay." Treatment: PT/OT/CARTON PACKAGING MACHINE OPERATOR; Case management consult for assistance at home but family ultimately refused Please clarify the severity of intellectual disability, if known: [ ] Mild intellectual disability [ ] Moderate intellectual disability [ ] Severe intellectual disability [ ] Profound intellectual disability [ ] Other (please specify): [ ] Unable to determine Reference (Merck Manual): Mild (IQ 52-69): Fairly self-sufficient and may live independently, with community and social support Moderate (IQ 36-51): Needs assistance with learning to live, work, interact, and play in the community Severe (IQ 20-35): Poor muscle coordination, able to learn simple skills, limited speech Profound (IQ <20): Little muscle coordination, unlikely to walk or talk, requires significant care MTDD
== END 2024-12-24 11:48 | disposition home or self-care (01) | DRG 66 ==
LOC: EEVIPCON 14:16 → EC 14:16 → 3SCARD 18:25 → OBSVTOIN 12-22 12:51 → 3SCARD 12-22 18:56
PROVIDERS: ADMIT Internal Medicine; ATTEND Internal Medicine
DX: I63.9 Cerebral infarction, unspecified (principal); H53.462 Homonymous bilateral field defects, left side; F03.90 Unspecified dementia, unspecified severity, without behavioral disturbance, psychotic disturbance, mood disturbance, and anxiety; I10 Essential (primary) hypertension; E03.9 Hypothyroidism, unspecified; R25.1 Tremor, unspecified; J32.9 Chronic sinusitis, unspecified; E78.5 Hyperlipidemia, unspecified; H54.7 Unspecified visual loss; H91.90 Unspecified hearing loss, unspecified ear; Z79.82 Long term (current) use of aspirin; Z79.890 Hormone replacement therapy; Z79.899 Other long term (current) drug therapy; Z86.73 Personal history of transient ischemic attack (TIA), and cerebral infarction without residual deficits; Z28.310 Unvaccinated for COVID-19
CPT/HCPCS: 36415; 70450; 70496; 70498; 70551; 71046; 80053; 80061; 82550; 84484; 85025; 85610; 85730; 93005; 93306; 99285

== ENCOUNTER → 2025-01-29 | Outpatient (CLI) | payer MEDICARE, BC, OTHER ==
--- NOTE | 2025-01-29 13:11 | XR ---
EXAMINATION TYPE: XR cervical spine comp DATE OF EXAM: 01/29/2025 12:23 PM COMPARISON: CT CLINICAL INDICATION: Male, 79 years old with history of S19.9XXA UNSPECIFIED INJURY OF NECK, INITIAL ENCOUNTER; PHH, pain TECHNIQUE: The cervical spine was imaged in frontal, lateral, odontoid and bilateral oblique. FINDINGS: The osseous structures show normal alignment without evidence of an acute fracture. There are osteoph ytes noted throughout the cervical spine on the anterior and lateral aspects of the vertebral bodies. The intervertebral disk spaces are narrowed at multiple levels. Pedicles are intact. Soft tissues a re within normal limits. The odontoid appears intact. IMPRESSION: 1. No fracture or dislocation. 2. 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 [facility], , 01/29/2025 1:09 PM
== END | disposition home or self-care (01) ==
LOC: RADXRMAIN 12:07
PROVIDERS: ATTEND Internal Medicine
DX: S19.9XXA Unspecified injury of neck, initial encounter (principal); M50.30 Other cervical disc degeneration, unspecified cervical region
CPT/HCPCS: 72050

== ENCOUNTER 2025-02-10 11:46 | Observation (INO) | payer MEDICARE, BC, OTHER ==
--- NOTE | 2025-02-10 12:57 | ED ---
Extremity Problem HPI - General Source: patient, RN notes reviewed Mode of arrival: ambulatory Limitations: no limitations <HollandLivia - Last Filed: 02/10/25 12:56> - General Source: patient, RN notes reviewed, old records reviewed Mode of arrival: ambulatory Limitations: no limitations - History of Present Illness MD Complaint: extremity pain, extremity swelling, joint swelling -: days(s) (2) Location: left, right, lower extremity, bilateral lower extremity History of Same: Yes -: Yes arthralgia Radiation: none Severity scale (1-10): 7 Quality: aching Consistency: constant Improves with: nothing, immobilization Associated Symptoms: myalgias, arthralgias <Ephraim Reaves - Last Filed: 02/18/25 18:14> - General Chief complaint: Extremity Problem,Nontraumatic Stated complaint: Swollen feet Time Seen by Provider: 02/10/25 12:56 - History of Present Illness Initial comments: Quick [id number] male presenting for bilateral foot swelling since yesterday. Denies chest pain or shortness of breath. Denies injury or trauma. (Livia Lino) This is a 79 male to the ER for evaluation of significant lower extremity edema pain and foot swelling since yesterday with some redness and erythema to the toe no trauma no injury just pain and swelling. No history of heart failure does have history of prior stroke, no chest pain or shortness of breath here in the ER. Patient has no prior history of DVT. (Ephraim Reaves) - Related Data Home Medications Medication Instructions Recorded Confirmed Aspirin EC [Ecotrin Low Dose] 81 mg PO DAILY 12/21/24 02/10/25 Cholecalciferol (Vitamin D3) 75 mcg PO DAILY 12/21/24 02/10/25 [Vitamin D3 (3000 Iu)] Levothyroxine Sodium [Synthroid] 25 mcg PO DAILY 12/21/24 02/10/25 Losartan [Cozaar] 50 mg PO DAILY 12/21/24 02/10/25 Calcium Carbonate [Calcium] 600 mg PO DAILY 02/10/25 02/10/25 Cyanocobalamin (Vitamin B-12) 1,000 mcg PO DAILY 02/10/25 02/10/25 [Vitamin B-12] Multivitamins, Thera [Multivitamin 1 tab PO DAILY 02/10/25 02/10/25 (formulary)] Primidone [Mysoline] 50 mg PO HS 02/10/25 02/10/25 Vitamin E (Dl,Tocopheryl Acet) 400 unit PO DAILY 02/10/25 02/10/25 [Vitamin E (400 Iu = 180 mg)] Previous Rx's Medication Instructions Recorded Atorvastatin [Lipitor] 40 mg PO DAILY 30 Days #30 tab 12/24/24 Cephalexin [Keflex] 500 mg PO Q12HR 7 Days #14 cap 02/14/25 Allergies Allergy/AdvReac Type Severity Reaction Status Date / Time No Known Allergies Allergy Verified 02/10/25 17:56 Review of Systems ROS Other: All systems not noted in ROS Statement are negative. <Livia Lino - Last Filed: 02/10/25 12:56> ROS Other: All systems not noted in ROS Statement are negative. <Ephraim Reaves - Last Filed: 02/18/25 18:14> ROS Statement: Those systems with pertinent positive or pertinent negative responses have been documented in the HPI. Past Medical History Past Medical History: Unable to Obtain Additional Past Medical History / Comment(s): "born handicapped" History of Any Multi-Drug Resistant Organisms: None Reported Past Surgical History: Unable to Obtain Additional Past Surgical History / Comment(s): cataract sx Past Anesthesia/Blood Transfusion Reactions: No Reported Reaction, Unable to Obtain Past Psychological History: No Psychological Hx Reported Smoking Status: Never smoker Past Alcohol Use History: None Reported Past Drug Use History: None Reported <Livia Lino - Last Filed: 02/10/25 12:56> General Exam Limitations: no limitations <Livia Lino - Last Filed: 02/10/25 12:56> General appearance: alert, in no apparent distress, anxious Head exam: Present: atraumatic, normocephalic, normal inspection Eye exam: Present: normal appearance, PERRL, EOMI. Absent: scleral icterus, conjunctival injection, periorbital swelling ENT exam: Present: normal exam, mucous membranes moist Neck exam: Present: normal inspection. Absent: tenderness, meningismus, lymphadenopathy Respiratory exam: Present: normal lung sounds bilaterally. Absent: respiratory distress, wheezes, rales, rhonchi, stridor Cardiovascular Exam: Present: regular rate, normal rhythm, normal heart sounds. Absent: systolic murmur, diastolic murmur, rubs, gallop, clicks GI/Abdominal exam: Present: soft, normal bowel sounds. Absent: distended, tenderness, guarding, rebound, rigid Extremities exam: Present: pedal edema, joint swelling, other (Extremity edema diminished capillary refill). Absent: normal capillary refill (3+ 4+), calf tenderness Back exam: Present: normal inspection Neurological exam: Present: alert, oriented X3, CN II-XII intact Psychiatric exam: Present: normal affect, normal mood Skin exam: Present: warm, dry, intact, normal color. Absent: rash <Ephraim Reaves - Last Filed: 02/18/25 18:14> - General Exam Comments Initial Comments: Visual Physical Exam Vital signs reviewed General: Well-appearing, nontoxic, no acute distress. Head: Normocephalic, atraumatic Eyes: PERRLA, EOMI ENT: Airway patent Chest: Nonlabored breathing Skin: No visual rash, normal skin tone Neuro: Alert and oriented 3 Musculoskeletal: No gross abnormalities (Livia Lino) Course <Ephraim Reaves - Last Filed: 02/18/25 18:14> Vital Signs 02/10/25 02/10/25 02/10/25 12:05 18:23 22:00 Temperature 97.7 F Pulse Rate 75 66 81 Respiratory 18 18 18 Rate Blood Pressure 144/69 152/84 124/80 O2 Sat by Pulse 98 97 96 Oximetry - Reevaluation(s) Reevaluation #1: 02/10/25 18:11 Records reviewed (Ephraim Reaves) Reevaluation #2: 02/10/25 18:11 Patient symptoms relatively unchanged, patient has bilateral lower extremity edema here in the ER (Ephraim Reaves) Reevaluation #3: 02/10/25 18:11 Patient informed of results and questions answered (Ephraim Reaves) Reevaluation #4: Was pt. sent in by a medical professional or institution (, PA, MEDIATOR, urgent care, hospital, or [facility]...) When possible be specific @ -no Did you speak to anyone other than the patient for history (EMS, parent, family, police, friend...)? What history was obtained from this source @ -no Did you review nursing and triage notes (agree or disagree)? Why? @ -agree Are old charts reviewed (outside hosp., previous admission, EMS record, old EKG, old radiological studies, urgent care reports/EKG's, [facility] records)? Report findings @ -yes Differential Diagnosis (chest pain, altered mental status, abdominal pain women, abdominal pain men, vaginal bleeding, weakness, fever, dyspnea, syncope, headache, dizziness, GI bleed, back pain, seizure, CVA, palpatations, mental health, musculoskeletal)? @ -prior EKG interpreted by me (3pts min.). @ -yes X-rays interpreted by me (1pt min.). @ -yes negative for acute disease CT interpreted by me (1pt min.). @ -no U/S interpreted by me (1pt. min.). @ -Yes negative for acute disease What testing was considered but not performed or refused? (CT, X-rays, U/S, lab s)? Why? @ -none What meds were considered but not given or refused? Why? @ -none Did you discuss the management of the patient with other professionals (professionals i.e. , PA, MEDIATOR, lab, RT, psych nurse, director of social media marketing, plant operator, teacher, bsa officer, caser shoe parts)? Give summary @ -no Was smoking cessation discussed for >3mins.? @ -no Was critical care preformed (if so, how long)? @ -no Were there social determinants of health that impacted care today? How? (Homelessness, low income, unemployed, alcoholism, drug addiction, transportation, low edu. Level, literacy, decrease access to med. care, nursing home, rehab)? @ -none Was there de-escalation of care discussed even if they declined (Discuss DNR or withdrawal of care, Hospice)? DNR status @ -no What co-morbidities impacted this encounter? (DM, HTN, Smoking, COPD, CAD, Cancer, CVA, ARF, Chemo, Hep., AIDS, mental health diagnosis, sleep apnea, morbid obesity)? @ -none Was patient admitted / discharged? Hospital course, mention meds given and route, prescriptions, significant lab abnormalities, going to OR and other pertinent info. @ - 79 male for lower extremity edema patient initial plan was discharge although we will admit for patient to be diuresed and see cardiology admitted Undiagnosed new problem with uncertain prognosis? @ -no Drug Therapy requiring intensive monitoring for toxicity (Heparin, Nitro, Insulin, Cardizem)? @ -no Were any procedures done? @ -no Diagnosis/symptom? @ -Bilateral leg edema Acute, or Chronic, or Acute on Chronic? @ -Acute Uncomplicated (without systemic symptoms) or Complicated (systemic symptoms)? @ -Complicated Side effects of treatment? @ -no Exacerbation, Progression, or Severe Exacerbation? @ -exacerbation Poses a threat to life or bodily function? How? (Chest pain, USA, PA, pneumonia, PE, COPD, DKA, ARF, appy, cholecystitis, CVA, Diverticulitis, Homicidal, Suicidal, threat to staff... and all critical care pts) @ -yes extremes of age (Ephraim Reaves) - Consultations Consultation #1: Spoke with admitting physicians who would prefer this patient to be admitted and diuresed (Ephraim Reaves) Medical Decision Making <Livia Lino - Last Filed: 02/10/25 12:56> - Lab Data Result diagrams: 02/14/25 04:05 02/14/25 04:05 - EKG Data -: EKG Interpreted by Me (EKG is sinus 68 CA 159 QRS 88 QTc 385) - Radiology Data Radiology results: report reviewed (Chest x-ray negative for acute disease ultrasound venous duplex negative for acute disease), image reviewed <Ephraim Reaves - Last Filed: 02/18/25 18:14> - Medical Decision Making I completed the quick note portion of this chart signed Livia Lino PA-C (Livia Lino) 79 male for lower extremity edema patient initial plan was discharge although we will admit for patient to be diuresed and see cardiology (Ephraim Reaves) - Lab Data Lab Results 02/10/25 02/10/25 Range/Units 17:06 17:06 WBC 9.2 (3.8-10.6) k/uL RBC 4.67 (4.30-5.90) m/uL Hgb 14.7 (13.0-17.5) gm/dL Hct 45.0 (39.0-53.0) % MCV 96.4 (80.0-100.0) fL MCH 31.5 (25.0-35.0) pg MCHC 32.7 (31.0-37.0) g/dL RDW 12.4 (11.5-15.5) % Plt Count 373 (150-450) k/uL MPV 7.3 Neutrophils % 74 % Lymphocytes % 16 % Monocytes % 7 % Eosinophils % 1 % Basophils % 0 % Neutrophils # 6.8 (1.3-7.7) k/uL Lymphocytes # 1.4 (1.0-4.8) k/uL Monocytes # 0.6 (0-1.0) k/uL Eosinophils # 0.1 (0-0.7) k/uL Basophils # 0.0 (0-0.2) k/uL Sodium 136 L (137-145) mmol/L Potassium 4.8 (3.5-5.1) mmol/L Chloride 104 (98-107) mmol/L Carbon Dioxide 27 (22-30) mmol/L Anion Gap 5 mmol/L BUN 24 H (9-20) mg/dL Creatinine 0.97 (0.66-1.25) mg/dL Est GFR (CKD-EPI)AfAm 87 (>60 ml/min/1.73 sqM) Est GFR (CKD-EPI)NonAf 75 (>60 ml/min/1.73 sqM) Glucose 83 (74-99) mg/dL Calcium 8.9 (8.4-10.2) mg/dL Total Bilirubin 0.7 (0.2-1.3) mg/dL AST 24 (17-59) U/L ALT 20 (4-49) U/L Alkaline Phosphatase 51 (38-126) U/L NT-Pro-B Natriuret Pep 114 pg/mL Total Protein 6.3 (6.3-8.2) g/dL Albumin 3.6 (3.5-5.0) g/dL Disposition <Livia Lino - Last Filed: 02/10/25 12:56> Is patient prescribed a controlled substance at d/c from ED?: No Time of Disposition: 18:00 <Ephraim Reaves - Last Filed: 02/18/25 18:14> Clinical Impression: Bilateral leg edema Disposition: ADMITTED IP TO THIS HOSP Condition: Stable
--- NOTE | 2025-02-10 13:53 | XR ---
EXAMINATION TYPE: XR chest 2V DATE OF EXAM: 02/10/2025 CLINICAL INDICATION: Male, 79 years old with history of b/l leg swelling, TECHNIQUE: Frontal and lateral views of the chest are obtained. COMPARISON: Chest x-ray December 21, 2024 FINDINGS: Significant cardiomegaly is redemonstrated. There is no suspicious peripheral focal air spa ce opacity, pleural effusion, or pneumothorax seen. No obvious failure. The osseous structures are i ntact. IMPRESSION: Cardiomegaly without acute pulmonary process. [facility], , 02/10/2025 1:50 PM
[2025-02-10 17:09] LABS: Basophils % (A) 0 %; Eosinophils # (A) 0.1 k/uL (0-0.7); Eosinophils % (A) 1 %; HGB 14.7 gm/dL (13.0-17.5); Lymphocytes # (A) 1.4 k/uL (1.0-4.8); Lymphocytes % (A) 16 %; MCH 31.5 pg (25.0-35.0); MCHC 32.7 g/dL (31.0-37.0); MCV 96.4 fL (80.0-100.0); Mean Platelet Volume 7.3; Monocytes # (A) 0.6 k/uL (0-1.0); Monocytes % (A) 7 %; Neutrophils # (A) 6.8 k/uL (1.3-7.7); Neutrophils % (A) 74 %; Platelet Count 373 k/uL (150-450); RBC 4.67 m/uL (4.30-5.90); RDW 12.4 % (11.5-15.5); WBC 9.2 k/uL (3.8-10.6)
--- NOTE | 2025-02-10 17:22 | US ---
EXAMINATION TYPE: US venous doppler duplex LE BI DATE OF EXAM: 02/10/2025 4:33 PM COMPARISON: NONE CLINICAL INDICATION: Male, 79 years old with history of dvt; Feet swelling, Pain TECHNIQUE: The lower extremity deep venous system is examined utilizing real time linear array sonog bhaskar with graded compression, color doppler sonography, and spectral doppler. SIDE PERFORMED: Bilateral FINDINGS: VESSELS IMAGED: Common Femoral Vein Deep Femoral Vein Greater Saphenous Vein * Femoral Vein Popliteal Vein Small Saphenous Vein * Proximal Calf Veins (* superficial vessels) Right Leg: No evidence of DVT, Color Doppler imaging shows patency of the vessels. Left Leg: No evidence of DVT, Color Doppler imaging shows patency of the vessels. *Unable to visualize left peroneal veins at ankle. IMPRESSION: No evidence for DVT at this time. [facility], , 02/10/2025 5:20 PM
[2025-02-10 17:29] LABS: ALT 20 U/L (4-49); African American GFR (CKD) 87 (>60 ml/min/1.73 sqM); Albumin 3.6 g/dL (3.5-5.0); Anion Gap 5 mmol/L; Blood Urea Nitrogen 24 mg/dL (9-20); Calcium 8.9 mg/dL (8.4-10.2); Carbon Dioxide 27 mmol/L (22-30); Chloride 104 mmol/L (98-107); Glucose 83 mg/dL (74-99); Non-African American GFR(CKD) 75 (>60 ml/min/1.73 sqM); Sodium 136 mmol/L (137-145); Total Bilirubin 0.7 mg/dL (0.2-1.3); Total Protein 6.3 g/dL (6.3-8.2)
[2025-02-10 17:36] LABS: NT-Pro-B-Type Natriuretic Pept 114 pg/mL
[2025-02-10 17:39] LABS: AST 24 U/L (17-59); Alkaline Phosphatase 51 U/L (38-126); Potassium 4.8 mmol/L (3.5-5.1)
[2025-02-10] MEDS ORDERED: ONDANSETRON 4 MG/2 ML VIAL IVP PRN (18:00)
[2025-02-10] MEDS ORDERED: NALOXONE 0.4 MG/ML 1 ML VIAL IV PRN (18:00)
[2025-02-10] MEDS: FUROSEMIDE 10 MG/ML 4 ML VIAL IV SCH (18:28)
[2025-02-10 19:36] LABS: Appearance,Urine Clear (Clear); Bilirubin,Urine Negative (Negative); Blood,Urine Negative (Negative); Color,Urine Colorless; Glucose,Urine (UA) Negative (Negative); Ketones,Urine Negative (Negative); Leukocyte Esterase,Urine Negative (Negative); Nitrite,Urine Negative (Negative); Protein,Urine Negative (Negative); Specific Gravity,Urine 1.003 (1.001-1.035); Urobilinogen,Urine <2.0 mg/dL (<2.0)
[2025-02-10] MEDS: MORPHINE SULFATE 4 MG/ML SYRINGE IV PRN (23:57)
[2025-02-11] MEDS: CHOLECALCIFEROL 25 MCG (1000 IU) TABLET PO SCH (08:17)
[2025-02-11] MEDS: MULTIVITAMINS, THERA 1 EACH TAB PO SCH (08:18)
[2025-02-11] MEDS: ASPIRIN 81 MG PO SCH (08:18)
[2025-02-11] MEDS: CYANOCOBALAMIN 500 MCG TAB PO SCH (08:18)
[2025-02-11] MEDS: VITAMIN E (DL,TOCOPHERYL ACET) 400 UNIT (180 MG) CAP PO SCH (08:18)
[2025-02-11] MEDS: ATORVASTATIN 40 MG TAB PO SCH (08:18)
[2025-02-11] MEDS: CALCIUM CARBONATE 500 MG CHEWABLE PO SCH (08:18)
[2025-02-11] MEDS: LOSARTAN 50 MG TAB PO SCH (08:18)
--- NOTE | 2025-02-11 09:13 | P.HPIM ---
History of Present Illness H&P Date: 02/11/25 Norman Whitaker is a 79-year-old male who presented to [facility] emergency room with a chief complaint of bilateral lower extremity swelling and erythema patient is a poor historian most history is obtained from medical record He was evaluated in the emergency room vital examination on presentation revealed temp 98.2, heart 69, respiratory rate 18, blood pressure 112/76 with a pulse ox of 96% on room air Laboratory data reveals white blood cell 9.2, hemoglobin 14.7, creatinine 0.97 and bun 24, BNP 114, UA negative Testing in the emergency room revealed chest x-ray completed showing cardiomegaly without acute pulmonary process. Venous Doppler completed showing negative for DVT Patient was admitted to medical floor for further evaluation and treatment. 2D echo ordered vascular surgery consulted Past medical history is significant for developmental delay hypothyroidism, essential hypertension and hyperlipidemia On review of systems patient is alert and oriented x 3. Patient denies chest pain or shortness of breath. Patient denies nausea vomiting or diarrhea. Patient denies any urinary burning or frequency Review of Systems Please refer to HPI otherwise unremarkable Past Medical History Past Medical History: Unable to Obtain Additional Past Medical History / Comment(s): "born handicapped" History of Any Multi-Drug Resistant Organisms: None Reported Past Surgical History: Unable to Obtain Additional Past Surgical History / Comment(s): cataract sx Past Anesthesia/Blood Transfusion Reactions: No Reported Reaction, Unable to Obtain Past Psychological History: No Psychological Hx Reported Smoking Status: Never smoker Past Alcohol Use History: None Reported Past Drug Use History: None Reported Medications and Allergies Home Medications Medication Instructions Recorded Confirmed Type Aspirin EC [Ecotrin Low Dose] 81 mg PO DAILY 12/21/24 02/10/25 History Cholecalciferol (Vitamin D3) 75 mcg PO DAILY 12/21/24 02/10/25 History [Vitamin D3 (3000 Iu)] Levothyroxine Sodium [Synthroid] 25 mcg PO DAILY 12/21/24 02/10/25 History Losartan [Cozaar] 50 mg PO DAILY 12/21/24 02/10/25 History Atorvastatin [Lipitor] 40 mg PO DAILY 30 Days #30 tab 12/24/24 02/10/25 Rx Calcium Carbonate [Calcium] 600 mg PO DAILY 02/10/25 02/10/25 History Cyanocobalamin (Vitamin B-12) 1,000 mcg PO DAILY 02/10/25 02/10/25 History [Vitamin B-12] Multivitamins, Thera [Multivitamin 1 tab PO DAILY 02/10/25 02/10/25 History (formulary)] Primidone [Mysoline] 50 mg PO HS 02/10/25 02/10/25 History Vitamin E (Dl,Tocopheryl Acet) 400 unit PO DAILY 02/10/25 02/10/25 History [Vitamin E (400 Iu = 180 mg)] Allergies Allergy/AdvReac Type Severity Reaction Status Date / Time No Known Allergies Allergy Verified 02/10/25 17:56 Physical Exam Vitals: Vital Signs Temp Pulse Pulse Resp BP BP Pulse Ox 02/11/25 01:12 97.5 F L 74 17 131/77 96 02/10/25 22:34 97.4 F L 69 17 132/81 98 02/10/25 22:00 81 18 124/80 96 02/10/25 18:23 66 18 152/84 97 02/10/25 12:05 97.7 F 75 18 144/69 98 Intake and Output 02/10/25 02/11/25 02/11/25 22:59 06:59 14:59 Output Total 1000 900 Balance -1000 -900 Output: Urine 1000 900 Other: # Voids 0 In general patient is alert and oriented -3 in no distress HEENT head normocephalic and atraumatic Neck is supple no JVD no goiter no lymphadenopathy no carotid bruit Chest examination is clear to auscultation no crackles no wheezing Cardiac exam reveals regular heart sounds S1 and S2 no gallops no murmurs Abdomen is soft nontender no organomegaly with normal bowel sounds Extremity exam reveals bilateral lower extremity swelling and erythema Neurological examination reveals no gross focal deficits Results CBC & Chem 7: 02/10/25 17:06 02/10/25 17:06 Labs: Abnormal Lab Results - Last 24 Hours (Table) 02/10/25 Range/Units 17:06 Sodium 136 L (137-145) mmol/L BUN 24 H (9-20) mg/dL Assessment and Plan Assessment: 1. Bilateral lower extremity edema. 2. History of developmental delay 3. History of hypothyroidism 4. History of essential hypertension 5. History of hyperlipidemia DVT prophylaxis Lovenox. GI prophylax Protonix Bilateral venous Doppler negative for DVT 2D echo ordered Vascular surgery consulted Repeat labs ordered Time with Patient: Greater than 30 (Greater than 60% of the total time spent in counseling and coordination of care)
[2025-02-11 09:21] LABS: Basophils # (A) 0.07 X 10*3/uL (0.00-0.10); Basophils % (A) 0.8 %; Eosinophils # (A) 0.14 X 10*3/uL (0.04-0.35); Eosinophils % (A) 1.6 %; HCT 45.1 % (39.6-50.0); HGB 14.6 g/dL (13.0-17.0); Lymphocytes # (A) 1.57 X 10*3/uL (0.90-5.00); Lymphocytes % (A) 17.6 %; MCH 31.3 pg (27.0-32.0); MCHC 32.4 g/dL (32.0-37.0); MCV 96.8 FL (80.0-97.0); Mean Platelet Volume 9.9 FL (9.5-12.2); Monocytes # (A) 1.12 X 10*3/uL (0.20-1.00); Monocytes % (A) 12.5 %; NRBC Per 100 WBC 0 X 10*3/uL (0.00-0.01); Neutrophils # (A) 5.95 X 10*3/uL (1.80-7.70); Neutrophils % (A) 66.6 %; Platelet Count 396 X 10*3/uL (140-440); RBC 4.66 X 10*6/uL (4.40-5.60); RDW 12.2 % (11.5-14.5); WBC 8.93 X 10*3/uL (4.50-10.00)
[2025-02-11 09:42] LABS: ALT 19 U/L (10-49); AST 21 U/L (14-35); Albumin 3.8 g/dL (3.8-4.9); Albumin/Globulin Ratio 1.58 Ratio (1.60-3.17); Alkaline Phosphatase 74 U/L (41-126); Blood Urea Nitrogen 25.2 mg/dL (9.0-27.0); Calcium 9.2 mg/dL (8.7-10.3); Carbon Dioxide 25.5 mmol/L (21.6-31.8); Chloride 102 mmol/L (96-109); Globulin 2.4 g/dL (1.6-3.3); Glucose 97 mg/dL (70-110); Magnesium 1.7 mg/dL (1.5-2.4); Phosphorus 4.5 mg/dL (2.4-5.1); Potassium 4.7 mmol/L (3.5-5.5); Sodium 139 mmol/L (135-145); Total Bilirubin 0.4 mg/dL (0.3-1.2); Total Protein 6.2 g/dL (6.2-8.2)
[2025-02-11] MEDS: LEVOTHYROXINE 25 MCG TAB PO SCH (12:01)
--- NOTE | 2025-02-11 13:13 | P.GSCN ---
History of Present Illness Consult date: 02/11/25 History of present illness: Norman is a 79-year-old male who presented supposedly for evaluation and complaint of bilateral lower extremity redness and swelling. He is a poor historian and difficult patient to understand. I believe he is timing that on occasion he gets cramping in his right leg that he has to move in order to help. He denies any significant complaints at this time. He has no wounds. The majority of history is obtained from medical records. Past Medical History Past Medical History: Unable to Obtain, CVA/TIA Additional Past Medical History / Comment(s): "born handicapped" hypothyroidism mechoopda History of Any Multi-Drug Resistant Organisms: None Reported Past Surgical History: Unable to Obtain Additional Past Surgical History / Comment(s): cataract sx Past Anesthesia/Blood Transfusion Reactions: No Reported Reaction, Unable to Obtain Past Psychological History: No Psychological Hx Reported Smoking Status: Never smoker Past Alcohol Use History: None Reported Past Drug Use History: None Reported Medications and Allergies Home Medications Medication Instructions Recorded Confirmed Type Aspirin EC [Ecotrin Low Dose] 81 mg PO DAILY 12/21/24 02/10/25 History Cholecalciferol (Vitamin D3) 75 mcg PO DAILY 12/21/24 02/10/25 History [Vitamin D3 (3000 Iu)] Levothyroxine Sodium [Synthroid] 25 mcg PO DAILY 12/21/24 02/10/25 History Losartan [Cozaar] 50 mg PO DAILY 12/21/24 02/10/25 History Atorvastatin [Lipitor] 40 mg PO DAILY 30 Days #30 tab 12/24/24 02/10/25 Rx Calcium Carbonate [Calcium] 600 mg PO DAILY 02/10/25 02/10/25 History Cyanocobalamin (Vitamin B-12) 1,000 mcg PO DAILY 02/10/25 02/10/25 History [Vitamin B-12] Multivitamins, Thera [Multivitamin 1 tab PO DAILY 02/10/25 02/10/25 History (formulary)] Primidone [Mysoline] 50 mg PO HS 02/10/25 02/10/25 History Vitamin E (Dl,Tocopheryl Acet) 400 unit PO DAILY 02/10/25 02/10/25 History [Vitamin E (400 Iu = 180 mg)] Allergies Allergy/AdvReac Type Severity Reaction Status Date / Time No Known Allergies Allergy Verified 02/10/25 17:56 Surgical - Exam Vital Signs Temp Pulse Resp BP Pulse Ox 97.7 F 75 18 144/69 98 02/10/25 12:05 02/10/25 12:05 02/10/25 12:05 02/10/25 12:05 02/10/25 12:05 general no distress HEENT head normocephalic and atraumatic Neck is supple Chest examination without respiratory distress Abdomen is soft Extremity exam reveals mild bilateral lower extremity edema, no wounds, dependent rubor of his toes, no hair in the distal legs. Nonpalpable DP, questionably palpable PT on the right, nonpalpable DP on the left, 1+ PT on the left Neurological examination reveals no gross focal deficits Results - Labs 02/11/25 04:50 02/11/25 04:50 Abnormal Lab Results - Last 24 Hours (Table) 02/10/25 02/11/25 02/11/25 Range/Units 17:06 04:50 04:50 Immature Gran # 0.08 H (0.00-0.04) X 10*3/uL Monocytes # 1.12 H (0.20-1.00) X 10*3/uL Sodium 136 L (137-145) mmol/L BUN 24 H (9-20) mg/dL Est GFR (CKD-EPI) 47 L (>=60) Albumin/Globulin Ratio 1.58 L (1.60-3.17) Ratio Diabetes panel 02/10/25 02/11/25 Range/Units 17:06 04:50 Sodium 136 L 139 (137-145) mmol/L Potassium 4.8 4.7 (3.5-5.1) mmol/L Chloride 104 102 (98-107) mmol/L Carbon Dioxide 27 25.5 (22-30) mmol/L BUN 24 H 25.2 (9-20) mg/dL Creatinine 0.97 1.5 (0.66-1.25) mg/dL Glucose 83 97 (74-99) mg/dL Calcium 8.9 9.2 (8.4-10.2) mg/dL AST 24 21 (17-59) U/L ALT 20 19 (4-49) U/L Alkaline Phosphatase 51 74 (38-126) U/L Total Protein 6.3 6.2 (6.3-8.2) g/dL Albumin 3.6 3.8 (3.5-5.0) g/dL Calcium panel 02/10/25 02/11/25 Range/Units 17:06 04:50 Calcium 8.9 9.2 (8.4-10.2) mg/dL Phosphorus 4.5 (2.4-5.1) mg/dL Albumin 3.6 3.8 (3.5-5.0) g/dL Pituitary panel 02/10/25 02/11/25 Range/Units 17:06 04:50 Sodium 136 L 139 (137-145) mmol/L Potassium 4.8 4.7 (3.5-5.1) mmol/L Chloride 104 102 (98-107) mmol/L Carbon Dioxide 27 25.5 (22-30) mmol/L BUN 24 H 25.2 (9-20) mg/dL Creatinine 0.97 1.5 (0.66-1.25) mg/dL Glucose 83 97 (74-99) mg/dL Calcium 8.9 9.2 (8.4-10.2) mg/dL Adrenal panel 02/10/25 02/11/25 Range/Units 17:06 04:50 Sodium 136 L 139 (137-145) mmol/L Potassium 4.8 4.7 (3.5-5.1) mmol/L Chloride 104 102 (98-107) mmol/L Carbon Dioxide 27 25.5 (22-30) mmol/L BUN 24 H 25.2 (9-20) mg/dL Creatinine 0.97 1.5 (0.66-1.25) mg/dL Glucose 83 97 (74-99) mg/dL Calcium 8.9 9.2 (8.4-10.2) mg/dL Total Bilirubin 0.7 0.4 (0.2-1.3) mg/dL AST 24 21 (17-59) U/L ALT 20 19 (4-49) U/L Alkaline Phosphatase 51 74 (38-126) U/L Total Protein 6.3 6.2 (6.3-8.2) g/dL Albumin 3.6 3.8 (3.5-5.0) g/dL Assessment and Plan Assessment: Mild bilateral lower extremity swelling Diminished pedal pulses Plan: Uncertain of the precise reason why patient is here, no acute evidence of ischemic changes or significant edema. Potentially could consider outpatient DAVIS for arterial disease workup. Venous duplex is reviewed, no DVT identified. Patient was discussed with the nurse and attempts were made for chart review to understand further
[2025-02-11] MEDS: PRIMIDONE 50 MG TAB PO SCH (20:36)
[2025-02-12] MEDS: PANTOPRAZOLE 40 MG TABLET PO SCH (06:43)
[2025-02-12 08:41] LABS: Basophils # (A) 0.04 X 10*3/uL (0.00-0.10); Basophils % (A) 0.5 %; Eosinophils # (A) 0.17 X 10*3/uL (0.04-0.35); Eosinophils % (A) 2.1 %; HCT 41.9 % (39.6-50.0); HGB 13.5 g/dL (13.0-17.0); Lymphocytes # (A) 1.41 X 10*3/uL (0.90-5.00); Lymphocytes % (A) 17.3 %; MCH 31.4 pg (27.0-32.0); MCHC 32.2 g/dL (32.0-37.0); MCV 97.4 FL (80.0-97.0); Mean Platelet Volume 10.4 FL (9.5-12.2); Monocytes # (A) 1.07 X 10*3/uL (0.20-1.00); Monocytes % (A) 13.2 %; NRBC Per 100 WBC 0 X 10*3/uL (0.00-0.01); Neutrophils # (A) 5.38 X 10*3/uL (1.80-7.70); Neutrophils % (A) 66.2 %; Platelet Count 339 X 10*3/uL (140-440); RDW 12.3 % (11.5-14.5); WBC 8.13 X 10*3/uL (4.50-10.00)
[2025-02-12] MEDS: ENOXAPARIN 40 MG/0.4 ML SYRINGE SQ SCH (08:43)
[2025-02-12 08:49] LABS: ALT 14 U/L (10-49); AST 17 U/L (14-35); Albumin 3.7 g/dL (3.8-4.9); Albumin/Globulin Ratio 1.76 Ratio (1.60-3.17); Alkaline Phosphatase 65 U/L (41-126); BUN/Creat Ratio 18.89 Ratio (12.00-20.00); Blood Urea Nitrogen 35.9 mg/dL (9.0-27.0); Calcium 8.7 mg/dL (8.7-10.3); Carbon Dioxide 27.3 mmol/L (21.6-31.8); Chloride 99 mmol/L (96-109); Globulin 2.1 g/dL (1.6-3.3); Glucose 93 mg/dL (70-110); Potassium 4.4 mmol/L (3.5-5.5); Sodium 137 mmol/L (135-145); Total Bilirubin 0.3 mg/dL (0.3-1.2); Total Protein 5.8 g/dL (6.2-8.2)
--- NOTE | 2025-02-12 17:20 | CA ---
Transthoracic Echo Report Name: Norman Whitaker Age: 79 Gender: M : 1945 Exam Date: 02/12/2025 11:48 Exam Location: [facility] Ht (in): 64 Wt (lb): 195 Ordering Physician: Olive Raymundo MD Attending/Referring Phys: Garnetter Lala Romo RDCS Procedure CPT: Indications: Shortness of breath, lower extremity edema Cardiac Hx: Technical Quality: Technically difficult study Contrast 1: Definity Total Dose (mL): 2 Contrast 2: Total Dose (mL): MEASUREMENTS (Male / Female) Normal Values 2D ECHO LV Diastolic Diameter PLAX 4.7 cm 4.2 - 5.9 / 3.9 - 5.3 cm LV Systolic Diameter PLAX 3.8 cm IVS Diastolic Thickness 1.6 cm 0.6 - 1.0 / 0.6 - 0.9 cm LVPW Diastolic Thickness 1.6 cm 0.6 - 1.0 / 0.6 - 0.9 cm LV Relative Wall Thickness 0.7 RV Internal Dim ED PLAX 3.9 cm LA Systolic Diameter LX 4.1 cm 3.0 - 4.0 / 2.7 - 3.8 cm LV Diastolic Volume MOD BP 76.3 cm??? 67 - 155 / 56 - 104 cm??? LV Systolic Volume MOD BP 37.6 cm??? 22 - 58 / 19 - 49 cm??? LV Ejection Fraction MOD BP 50.7 % >= 55 % LV Cardiac Index MOD BP 1331.8 cm???/min???m??? LV Diastolic Volume MOD 4C 81.1 cm??? LV Systolic Volume MOD 4C 45.8 cm??? LV Ejection Fraction MOD 4C 43.6 % LV Cardiac Index MOD 4C 1215.8 cm???/min???m??? LV Diastolic Length 4C 7.8 cm LV Systolic Length 4C 7.0 cm LV Diastolic Volume MOD 2C 70.6 cm??? LV Systolic Volume MOD 2C 31.3 cm??? LV Ejection Fraction MOD 2C 55.6 % LV Cardiac Index MOD 2C 1351.3 cm???/min???m??? LV Diastolic Length 2C 7.6 cm LV Systolic Length 2C 6.9 cm M-MODE Aortic Root Diameter MM 3.8 cm DOPPLER AV Peak Velocity 116.1 cm/s AV Peak Gradient 5.4 mmHg AI Peak Velocity 371.0 cm/s AI Peak Gradient 55.0 mmHg AI Pressure Half Time 785.6 ms Mitral E Point Velocity 39.0 cm/s Mitral A Point Velocity 74.0 cm/s Mitral E to A Ratio 0.5 MV Deceleration Time 251.2 ms TR Peak Velocity 209.1 cm/s TR Peak Gradient 17.5 mmHg Right Ventricular Systolic Press 27.7 mmHg FINDINGS Left Ventricle Left ventricular ejection fraction is estimated at 45-50 %. Left ventricular cavity size normal. Moderately increased septal wall thickness. Mildly decreased left ventricular ejection fraction. Infero basel hypokinesis Right Ventricle Moderate right ventricular dilatation. Right ventricular systolic pressure within normal limits. Right Atrium Normal right atrial size. No right atrial thrombus or mass seen. Left Atrium Mildly increased left atrial diameter. No left atrial thrombus or mass present. Mitral Valve Structurally normal mitral valve. No mitral stenosis, regurgitation or prolapse. Aortic Valve Trileaflet aortic valve. Thickened aortic valve without stenosis. Mild to moderate aortic regurgitation. Tricuspid Valve Structurally normal tricuspid valve. Mild tricuspid regurgitation. Pulmonic Valve Pulmonic valve not well visualized. Pericardium No pericardial effusion. Aorta Mild aortic dilatation at the level of the sinuses of valsalva 38 mm CONCLUSIONS Mild LV systolic dysfunction with an ejection fraction of 45 to 50% Dilated right ventricle Mild to moderate aortic regurgitation Mildly dilated aortic root Previewed by: Dr. Gerard Flor MD (Electronically Signed) Final Date: 12 February 2025 17:19
--- NOTE | 2025-02-12 17:48 | P.PN ---
Subjective Progress Note Date: 02/12/25 Norman Whitaker is a 79-year-old male who presented to [facility] emergency room with a chief complaint of bilateral lower extremity swelling and erythema patient is a poor historian most history is obtained from medical record He was evaluated in the emergency room vital examination on presentation revealed temp 98.2, heart 69, respiratory rate 18, blood pressure 112/76 with a pulse ox of 96% on room air Laboratory data reveals white blood cell 9.2, hemoglobin 14.7, creatinine 0.97 and bun 24, BNP 114, UA negative Testing in the emergency room revealed chest x-ray completed showing cardiomegaly without acute pulmonary process. Venous Doppler completed showing negative for DVT Patient was admitted to medical floor for further evaluation and treatment. 2D echo ordered vascular surgery consulted Past medical history is significant for developmental delay hypothyroidism, ess ential hypertension and hyperlipidemia On review of systems patient is alert and oriented x 3. Patient denies chest pain or shortness of breath. Patient denies nausea vomiting or diarrhea. Patient denies any urinary burning or frequency On 02/12/2025 patient was seen and examined on the medical floor, he reports improvement in bilateral lower extremity erythema edema and tenderness, otherwise he denies any complaints there is no fever or chills no headache or dizziness no chest pain no shortness of breath no cough no nausea or vomiting no abdominal pain no diarrhea and no urinary symptoms. Echocardiogram revealed mild LV systolic dysfunction with an ejection fraction of 45 to 50% and dilated right ventricle. Cardiology consultation was requested Objective - Vital Signs Vital signs: Vital Signs Temp 97.6 F 02/12/25 14:07 Pulse 72 02/12/25 14:07 Resp 16 02/12/25 14:07 BP 95/59 02/12/25 14:07 Pulse Ox 94 L 02/12/25 14:07 FiO2 Intake & Output 02/11/25 02/12/25 02/12/25 18:59 06:59 18:59 Weight 88.451 kg Other: # Voids 2 3 1 - Exam In general patient is alert and oriented x 3 in no distress HEENT head normocephalic and atraumatic Neck is supple no JVD no goiter no lymphadenopathy no carotid bruit Chest examination is clear to auscultation no crackles no wheezing Cardiac exam reveals regular heart sounds S1 and S2 no gallops no murmurs Abdomen is soft nontender no organomegaly with normal bowel sounds Extremity exam reveals bilateral lower extremity swelling and erythema Neurological examination reveals no gross focal deficits - Labs CBC & Chem 7: 02/12/25 05:29 02/12/25 05:29 Labs: Abnormal Lab Results - Last 24 Hours (Table) 02/12/25 02/12/25 Range/Units 05:29 05:29 RBC 4.30 L (4.40-5.60) X 10*6/uL MCV 97.4 H (80.0-97.0) FL Immature Gran # 0.06 H (0.00-0.04) X 10*3/uL Monocytes # 1.07 H (0.20-1.00) X 10*3/uL BUN 35.9 H (9.0-27.0) mg/dL Creatinine 1.9 H (0.6-1.5) mg/dL Est GFR (CKD-EPI) 36 L (>=60) Total Protein 5.8 L (6.2-8.2) g/dL Albumin 3.7 L (3.8-4.9) g/dL Assessment and Plan Assessment: 1. Bilateral lower extremity edema. 2. History of developmental delay 3. History of hypothyroidism 4. History of essential hypertension 5. History of hyperlipidemia DVT prophylaxis Lovenox. GI prophylax Protonix Bilateral venous Doppler negative for DVT 2D echo ordered Vascular surgery consulted Repeat labs ordered
[2025-02-13] MEDS: SODIUM CHLORIDE 0.9% 1,000 ML IV SCH (08:15)
[2025-02-13 08:26] LABS: Basophils # (A) 0.06 X 10*3/uL (0.00-0.10); Basophils % (A) 0.7 %; Eosinophils # (A) 0.18 X 10*3/uL (0.04-0.35); Eosinophils % (A) 2.2 %; HGB 14.5 g/dL (13.0-17.0); Lymphocytes # (A) 1.48 X 10*3/uL (0.90-5.00); Lymphocytes % (A) 18.1 %; MCH 32.7 pg (27.0-32.0); MCHC 33.7 g/dL (32.0-37.0); MCV 96.8 FL (80.0-97.0); Mean Platelet Volume 9.9 FL (9.5-12.2); Monocytes # (A) 1.22 X 10*3/uL (0.20-1.00); Monocytes % (A) 14.9 %; NRBC Per 100 WBC 0 X 10*3/uL (0.00-0.01); Neutrophils # (A) 5.19 X 10*3/uL (1.80-7.70); Neutrophils % (A) 63.6 %; Platelet Count 331 X 10*3/uL (140-440); RBC 4.44 X 10*6/uL (4.40-5.60); RDW 12.3 % (11.5-14.5); WBC 8.17 X 10*3/uL (4.50-10.00)
[2025-02-13] MEDS: ENOXAPARIN 30 MG/0.3 ML SYRINGE SQ SCH (08:32)
--- NOTE | 2025-02-13 08:51 | P.CRDCN ---
History of Present Illness History of present illness: HISTORY OF PRESENT ILLNESS: This is a 79-year-old male with a past medical history significant for hypertension, hyperlipidemia, and hypothyroidism. Patient does not follow with a environmental conservation professor. We have been asked to see the patient in consultation for abnormal echo. Patient examined at the bedside. Patient states he presented to the hospital after sustaining a fall at home. Apparently, the patients family was concerned about lower extremity swelling as well. The patient was started on IV lasix, despite normal BNP. Patient has been getting Lasix 40mg q 8 hours since admission. He developed acute kidney injury with a creatinine of 1.9 this morning. Denies chest pain or pressure. Denies shortness of breath. DIAGNOSTICS: - EKG reveals sinus mechanism T wave inversions inferiorly - Chest xray cardiomegaly without acute pulmonary process - Laboratory data: WBC 8.17. Hemoglobin 14.5. Platelet count 331. Sodium 137. Potassium 4.4. BUN 35. Creatinine 1.9. - Current home cardiac medications include losartan 50 mg daily, Lipitor 40 mg daily, and aspirin 81 mg daily. -Echocardiogram obtained this admission reveals ejection fraction 45 to 50% with inferior basal hypokinesis, mild to moderate AI, mild TR - Cardiac catheterization history: Patient denies REVIEW OF SYSTEMS: At the time of my exam: CONSTITUTIONAL: Denies fever or chills. HEENT: Denies blurred vision, vision changes, or eye pain. Denies hemoptysis CARDIOVASCULAR: Denies chest pain. Denies orthopnea. Denies PND. Denies palpitations RESPIRATORY: Denies shortness of breath. GASTROINTESTINAL: Denies abdominal pain. Denies nausea or vomiting. HEMATOLOGIC: Denies bleeding disorders. GENITOURINARY: Denies any blood in urine. SKIN: Denies pruitis. Denies rash. PHYSICAL EXAM: VITAL SIGNS: Reviewed. GENERAL: Well-developed in no acute distress. HEENT: Head is normocephalic. Pupils are equal, round. Sclerae anicteric. Mucous membranes of the mouth are moist. Neck supple. No JVD or thyromegaly LUNGS: Respirations even and unlabored. Lungs essentially clear to auscultation bilaterally. HEART: Regular rate and rhythm. S1 and S2 heard. ABDOMEN: Soft. Nondistended. Nontender. EXTREMITIES: Normal range of motion. No clubbing or cyanosis. Peripheral pulses intact. No lower extremity edema NEUROLOGIC: Awake and alert. Oriented x 3. ASSESSMENT: Status post mechanical fall at home, per patient History of developmental delay Congestive heart failure, ruled out, no evidence of CHF Acute kidney injury, secondary to diuresis Mild cardiomyopathy, 45-50%, ischemic versus nonischemic Hypertension Hyperlipidemia Hypothyroidism PLAN: Discontinue IV Lasix as patient is not in congestive heart failure. Additionally he has developed acute kidney injury this morning with a creatinine of 1.9 Begin IV fluids 0.9 normal saline at 100 cc an hour Repeat kidney function in a.m. No further workup is necessary from a cardiac standpoint at this time regarding patient's echocardiogram Patient may follow-up postdischarge in the office with Dr. Flor Nurse practitioner note has been reviewed by physician. Signing provider agrees with the documented findings, assessment, and plan of care documented by CHARGE AUTHORIZER as a scribe. Past Medical History Past Medical History: Unable to Obtain, CVA/TIA Additional Past Medical History / Comment(s): "born handicapped" hypothyroidism three affiliated History of Any Multi-Drug Resistant Organisms: None Reported Past Surgical History: Unable to Obtain Additional Past Surgical History / Comment(s): cataract sx Past Anesthesia/Blood Transfusion Reactions: No Reported Reaction, Unable to Obtain Past Psychological History: No Psychological Hx Reported Smoking Status: Never smoker Past Alcohol Use History: None Reported Past Drug Use History: None Reported Medications and Allergies Home Medications Medication Instructions Recorded Confirmed Type Aspirin EC [Ecotrin Low Dose] 81 mg PO DAILY 12/21/24 02/10/25 History Cholecalciferol (Vitamin D3) 75 mcg PO DAILY 12/21/24 02/10/25 History [Vitamin D3 (3000 Iu)] Levothyroxine Sodium [Synthroid] 25 mcg PO DAILY 12/21/24 02/10/25 History Losartan [Cozaar] 50 mg PO DAILY 12/21/24 02/10/25 History Atorvastatin [Lipitor] 40 mg PO DAILY 30 Days #30 tab 12/24/24 02/10/25 Rx Calcium Carbonate [Calcium] 600 mg PO DAILY 02/10/25 02/10/25 History Cyanocobalamin (Vitamin B-12) 1,000 mcg PO DAILY 02/10/25 02/10/25 History [Vitamin B-12] Multivitamins, Thera [Multivitamin 1 tab PO DAILY 02/10/25 02/10/25 History (formulary)] Primidone [Mysoline] 50 mg PO HS 02/10/25 02/10/25 History Vitamin E (Dl,Tocopheryl Acet) 400 unit PO DAILY 02/10/25 02/10/25 History [Vitamin E (400 Iu = 180 mg)] Allergies Allergy/AdvReac Type Severity Reaction Status Date / Time No Known Allergies Allergy Verified 02/10/25 17:56 Physical Exam Vitals: Vital Signs Temp Pulse Pulse Resp BP BP Pulse Ox 02/13/25 07:25 97.6 F 78 17 107/67 96 02/13/25 01:55 98.2 F 81 16 108/64 02/12/25 20:00 98.1 F 98 17 116/79 94 L 02/12/25 14:07 97.6 F 72 16 95/59 94 L Intake and Output 02/12/25 02/13/25 02/13/25 22:59 06:59 14:59 Intake Total 355 Output Total 1450 Balance 355 -1450 Intake: Oral 355 Output: Urine 1450 Results 02/13/25 05:29 02/12/25 05:29 Cardiac Enzymes 02/12/25 Range/Units 05:29 AST 17 (14-35) U/L CBC 02/13/25 Range/Units 05:29 WBC 8.17 (4.50-10.00) X 10*3/uL RBC 4.44 (4.40-5.60) X 10*6/uL Hgb 14.5 (13.0-17.0) g/dL Hct 43.0 (39.6-50.0) % Plt Count 331 (140-440) X 10*3/uL Comprehensive Metabolic Panel 02/12/25 Range/Units 05:29 Sodium 137 (135-145) mmol/L Potassium 4.4 (3.5-5.5) mmol/L Chloride 99 (96-109) mmol/L Carbon Dioxide 27.3 (21.6-31.8) mmol/L BUN 35.9 H (9.0-27.0) mg/dL Creatinine 1.9 H (0.6-1.5) mg/dL Glucose 93 (70-110) mg/dL Calcium 8.7 (8.7-10.3) mg/dL AST 17 (14-35) U/L ALT 14 (10-49) U/L Alkaline Phosphatase 65 (41-126) U/L Total Protein 5.8 L (6.2-8.2) g/dL Albumin 3.7 L (3.8-4.9) g/dL Current Medications Generic Name Dose Route Start Last Admin Trade Name Freq PRN Reason Stop Dose Admin Aspirin 81 mg 02/11/25 09:00 02/13/25 08:15 Aspirin 81 Mg PO 81 mg DAILY MIKE Administration Atorvastatin Calcium 40 mg 02/11/25 09:00 02/13/25 08:15 Atorvastatin 40 Mg Tab PO 40 mg DAILY MIKE Administration Calcium Carbonate/Glycine 500 mg 02/11/25 09:00 02/13/25 08:15 Calcium Carbonate 500 Mg Chewable PO 500 mg DAILY MIKE Administration Cholecalciferol 75 mcg 02/11/25 09:00 02/13/25 08:14 Cholecalciferol 25 Mcg (1000 Iu) Tablet PO 75 mcg DAILY MIKE Administration Cyanocobalamin 1,000 mcg 02/11/25 09:00 02/13/25 08:15 Cyanocobalamin 500 Mcg Tab PO 1,000 mcg DAILY MIKE Administration Enoxaparin Sodium 30 mg 02/13/25 09:00 02/13/25 08:32 Enoxaparin 30 Mg/0.3 Ml Syringe SQ 30 mg DAILY MIKE Administration Cefazolin Sodium 1,000 mg/ 50 mls @ 100 mls/hr 02/11/25 12:00 02/13/25 03:57 Sodium Chloride IVPB 100 mls/hr Q8H MIKE Administration Protocol Sodium Chloride 1,000 mls @ 100 mls/hr 02/13/25 07:30 02/13/25 08:15 Saline 0.9% IV 100 mls/hr .Q10H MIKE Administration Levothyroxine Sodium 25 mcg 02/11/25 09:00 02/13/25 06:53 Levothyroxine 25 Mcg Tab PO 25 mcg 0630 MIKE Administration Losartan Potassium 50 mg 02/11/25 09:00 02/13/25 08:15 Losartan 50 Mg Tab PO 50 mg DAILY MIKE Administration Morphine Sulfate 4 mg 02/10/25 18:00 02/10/25 23:57 Morphine Sulfate 4 Mg/Ml Syringe IV 4 mg Q4HR PRN Administration Severe Pain (Scale 7 to 10) Multivitamins 1 each 02/11/25 09:00 02/13/25 08:15 Multivitamins, Thera 1 Each Tab PO 1 each DAILY MIKE Administration Naloxone HCl 0.2 mg 02/10/25 18:00 Naloxone 0.4 Mg/Ml 1 Ml Vial IV Q2M PRN Opioid Reversal Ondansetron HCl 4 mg 02/10/25 18:00 Ondansetron 4 Mg/2 Ml Vial IVP Q8HR PRN Nausea And Vomiting Pantoprazole Sodium 40 mg 02/12/25 07:30 02/13/25 06:53 Pantoprazole 40 Mg Tablet PO 40 mg [id number] MIKE Administration Primidone 50 mg 02/11/25 21:00 02/12/25 20:13 Primidone 50 Mg Tab PO 50 mg HS MIKE Administration Vitamin E 400 unit 02/11/25 09:00 02/13/25 08:32 Vitamin E (Dl,Tocopheryl Acet) 400 Unit (180 Mg) Cap PO 400 unit DAILY MIKE Administration Intake and Output 02/12/25 02/13/25 02/13/25 22:59 06:59 14:59 Intake Total 355 Output Total 1450 Balance 355 -1450 Intake: Oral 355 Output: Urine 1450 02/13/25 05:29 02/12/25 05:29
[2025-02-13 09:07] LABS: ALT 10 U/L (10-49); AST 15 U/L (14-35); Albumin 3.6 g/dL (3.8-4.9); Albumin/Globulin Ratio 1.64 Ratio (1.60-3.17); Alkaline Phosphatase 66 U/L (41-126); BUN/Creat Ratio 19.82 Ratio (12.00-20.00); Blood Urea Nitrogen 33.7 mg/dL (9.0-27.0); Calcium 8.8 mg/dL (8.7-10.3); Carbon Dioxide 26.9 mmol/L (21.6-31.8); Chloride 98 mmol/L (96-109); Globulin 2.2 g/dL (1.6-3.3); Glucose 87 mg/dL (70-110); Potassium 4.1 mmol/L (3.5-5.5); Sodium 136 mmol/L (135-145); Total Bilirubin 0.3 mg/dL (0.3-1.2); Total Protein 5.8 g/dL (6.2-8.2)
--- NOTE | 2025-02-13 11:09 | P.PN ---
Subjective Progress Note Date: 02/13/25 Norman Whitaker is a 79-year-old male who presented to [facility] emergency room with a chief complaint of bilateral lower extremity swelling and erythema patient is a poor historian most history is obtained from medical record He was evaluated in the emergency room vital examination on presentation revealed temp 98.2, heart 69, respiratory rate 18, blood pressure 112/76 with a pulse ox of 96% on room air Laboratory data reveals white blood cell 9.2, hemoglobin 14.7, creatinine 0.97 and bun 24, BNP 114, UA negative Testing in the emergency room revealed chest x-ray completed showing cardiomegaly without acute pulmonary process. Venous Doppler completed showing negative for DVT Patient was admitted to medical floor for further evaluation and treatment. 2D echo ordered vascular surgery consulted Past medical history is significant for developmental delay hypothyroidism, ess ential hypertension and hyperlipidemia On review of systems patient is alert and oriented x 3. Patient denies chest pain or shortness of breath. Patient denies nausea vomiting or diarrhea. Patient denies any urinary burning or frequency On 02/12/2025 patient was seen and examined on the medical floor, he reports improvement in bilateral lower extremity erythema edema and tenderness, otherwise he denies any complaints there is no fever or chills no headache or dizziness no chest pain no shortness of breath no cough no nausea or vomiting no abdominal pain no diarrhea and no urinary symptoms. Echocardiogram revealed mild LV systolic dysfunction with an ejection fraction of 45 to 50% and dilated right ventricle. Cardiology consultation was requested On 02/13/2025 patient is alert and oriented x 3. Cardiology services following will follow-up outpatient with echocardiogram result. IV Lasix have been DC'd per cardiology and patient started on IV fluid for ANA PAULA. Creatinine is trending down 1.7 we will continue IV fluid at this time. Patient denies chest pain or shortness of breath. Patient denies nausea vomiting or diarrhea. Patient denies any urinary burning or frequency Objective - Vital Signs Vital signs: Vital Signs Temp 97.6 F 02/13/25 07:25 Pulse 78 02/13/25 07:25 Resp 17 02/13/25 07:25 BP 107/67 02/13/25 07:25 Pulse Ox 96 02/13/25 07:25 FiO2 Intake & Output 02/12/25 02/13/25 02/13/25 18:59 06:59 18:59 Intake Total 118 237 118 Output Total 1450 Balance 118 -1213 118 Intake: Oral 118 237 118 Output: Urine 1450 Other: # Voids 1 - Exam In general patient is alert and oriented x 3 in no distress HEENT head normocephalic and atraumatic Neck is supple no JVD no goiter no lymphadenopathy no carotid bruit Chest examination is clear to auscultation no crackles no wheezing Cardiac exam reveals regular heart sounds S1 and S2 no gallops no murmurs Abdomen is soft nontender no organomegaly with normal bowel sounds Extremity exam reveals bilateral lower extremity swelling and erythema Neurological examination reveals no gross focal deficits - Labs CBC & Chem 7: 02/13/25 05:29 02/13/25 05:29 Labs: Abnormal Lab Results - Last 24 Hours (Table) 02/13/25 02/13/25 Range/Units 05:29 05:29 MCH 32.7 H (27.0-32.0) pg Monocytes # 1.22 H (0.20-1.00) X 10*3/uL BUN 33.7 H (9.0-27.0) mg/dL Creatinine 1.7 H (0.6-1.5) mg/dL Est GFR (CKD-EPI) 41 L (>=60) Total Protein 5.8 L (6.2-8.2) g/dL Albumin 3.6 L (3.8-4.9) g/dL Assessment and Plan Assessment: 1. Bilateral lower extremity edema. 2. History of developmental delay 3. History of hypothyroidism 4. History of essential hypertension 5. History of hyperlipidemia 6. Mild cardiomyopathy. 2D echo revealing 45 to 50%. Will follow-up outpatient with Dr. Schofield 7. Acute kidney injury. IV Lasix DC'd continue IV fluid at this time DVT prophylaxis Lovenox. GI prophylax Protonix Bilateral venous Doppler negative for DVT Continue normal saline at this time Repeat labs ordered for a.m. Repeat labs ordered
[2025-02-14 08:34] LABS: ALT 9 U/L (10-49); AST 15 U/L (14-35); Albumin 3.3 g/dL (3.8-4.9); Albumin/Globulin Ratio 1.57 Ratio (1.60-3.17); Alkaline Phosphatase 59 U/L (41-126); BUN/Creat Ratio 16.43 Ratio (12.00-20.00); Calcium 8.5 mg/dL (8.7-10.3); Carbon Dioxide 24.6 mmol/L (21.6-31.8); Chloride 105 mmol/L (96-109); Globulin 2.1 g/dL (1.6-3.3); Glucose 92 mg/dL (70-110); Potassium 4.3 mmol/L (3.5-5.5); Sodium 138 mmol/L (135-145); Total Bilirubin 0.2 mg/dL (0.3-1.2); Total Protein 5.4 g/dL (6.2-8.2)
--- NOTE | 2025-02-14 08:48 | P.PN ---
Subjective HISTORY OF PRESENT ILLNESS: This is a 79-year-old male with a past medical history significant for hypertension, hyperlipidemia, and hypothyroidism. Patient does not follow with a house father. We have been asked to see the patient in consultation for abnormal echo. Patient examined at the bedside. Patient states he presented to the hospital after sustaining a fall at home. Apparently, the patients family was concerned about lower extremity swelling as well. The patient was started on IV lasix, despite normal BNP. Patient has been getting Lasix 40mg q 8 hours since admission. He developed acute kidney injury with a creatinine of 1.9 this morning. Denies chest pain or pressure. Denies shortness of breath. DIAGNOSTICS: - EKG reveals sinus mechanism T wave inversions inferiorly - Chest xray cardiomegaly without acute pulmonary process - Laboratory data: WBC 8.17. Hemoglobin 14.5. Platelet count 331. Sodium 137. Potassium 4.4. BUN 35. Creatinine 1.9. - Current home cardiac medications include losartan 50 mg daily, Lipitor 40 mg daily, and aspirin 81 mg daily. -Echocardiogram obtained this admission reveals ejection fraction 45 to 50% with inferior basal hypokinesis, mild to moderate AI, mild TR - Cardiac catheterization history: Patient denies 02/14/2025 Patient examined this morning bedside. Patient currently denies chest pain or pressure. He denies shortness of breath. Vital signs are stable. Creatinine today 1.4. PHYSICAL EXAM: VITAL SIGNS: Reviewed. GENERAL: Well-developed in no acute distress. HEENT: Head is normocephalic. Pupils are equal, round. Sclerae anicteric. Mucous membranes of the mouth are moist. Neck supple. No JVD or thyromegaly LUNGS: Respirations even and unlabored. Lungs essentially clear to auscultation bilaterally. HEART: Regular rate and rhythm. S1 and S2 heard. ABDOMEN: Soft. Nondistended. Nontender. EXTREMITIES: Normal range of motion. No clubbing or cyanosis. Peripheral pu lses intact. No lower extremity edema NEUROLOGIC: Awake and alert. Oriented x 3. ASSESSMENT: Status post mechanical fall at home, per patient History of developmental delay Congestive heart failure, ruled out, no evidence of CHF Acute kidney injury, secondary to diuresis Mild cardiomyopathy, 45-50%, ischemic versus nonischemic Hypertension Hyperlipidemia Hypothyroidism PLAN: Continue to hold diuretics. Monitor kidney function Patient is currently stable from a cardiac standpoint No further workup is necessary from a cardiac standpoint at this time regarding patient's echocardiogram Patient may follow-up postdischarge in the office with Dr. Flor Discharge per medicine Nurse practitioner note has been reviewed by physician. Signing provider agrees with the documented findings, assessment, and plan of care documented by AUTOMATION SALES MANAGER as a scribe. Objective - Vital Signs Vital signs: Vital Signs Temp 97.3 F L 02/14/25 02:00 Pulse 69 02/14/25 02:00 Resp 16 02/14/25 02:00 BP 103/59 02/14/25 02:00 Pulse Ox 94 L 02/14/25 02:00 FiO2 Intake & Output 02/13/25 02/14/25 02/14/25 18:59 06:59 18:59 Intake Total 236 Output Total 600 1400 Balance -364 -1400 Intake: Oral 236 Output: Urine 600 1400 Other: # Voids 3 # Bowel Movements 1 - Labs CBC & Chem 7: 02/13/25 05:29 02/14/25 04:05 Labs: Abnormal Lab Results - Last 24 Hours (Table) 02/13/25 02/14/25 Range/Units 05:29 04:05 BUN 33.7 H (9.0-27.0) mg/dL Creatinine 1.7 H (0.6-1.5) mg/dL Est GFR (CKD-EPI) 41 L 51 L (>=60) Calcium 8.5 L (8.7-10.3) mg/dL Total Bilirubin 0.2 L (0.3-1.2) mg/dL ALT 9 L (10-49) U/L Total Protein 5.8 L 5.4 L (6.2-8.2) g/dL Albumin 3.6 L 3.3 L (3.8-4.9) g/dL Albumin/Globulin Ratio 1.57 L (1.60-3.17) Ratio
[2025-02-14 08:49] VITALS: BP 114/64; PULSE 58; RESP 17; TEMP 97.5
[2025-02-14 09:15] LABS: Basophils # (A) 0.04 X 10*3/uL (0.00-0.10); Basophils % (A) 0.6 %; Eosinophils # (A) 0.12 X 10*3/uL (0.04-0.35); Eosinophils % (A) 1.8 %; HCT 39.4 % (39.6-50.0); HGB 12.8 g/dL (13.0-17.0); Lymphocytes # (A) 1.23 X 10*3/uL (0.90-5.00); Lymphocytes % (A) 18.8 %; MCH 31.9 pg (27.0-32.0); MCHC 32.5 g/dL (32.0-37.0); MCV 98.3 FL (80.0-97.0); Mean Platelet Volume 10.5 FL (9.5-12.2); Monocytes # (A) 1.07 X 10*3/uL (0.20-1.00); Monocytes % (A) 16.3 %; NRBC Per 100 WBC 0 X 10*3/uL (0.00-0.01); Neutrophils # (A) 4.07 X 10*3/uL (1.80-7.70); Platelet Count 309 X 10*3/uL (140-440); RBC 4.01 X 10*6/uL (4.40-5.60); RDW 12.2 % (11.5-14.5); WBC 6.56 X 10*3/uL (4.50-10.00)
--- NOTE | 2025-02-14 09:49 | P.DS ---
Providers Date of admission: 02/10/25 18:01 Expected date of discharge: 02/14/25 Attending physician: Olive Raymundo Consults: 02/10/25 18:00 Consult Physician Routine Consulting Provider: Lula Acosta Consult Reason/Comments: PAD Do you want consulting provider notified?: Yes 02/12/25 17:49 Consult Physician Routine Consulting Provider: Merced Vega Consult Reason/Comments: Abnormal echocardiogram Do you want consulting provider notified?: Yes Primary care physician: Olive Raymundo [facility] Course: Discharge diagnosis 1. Bilateral lower extremity edema. 2. History of developmental delay 3. History of hypothyroidism 4. History of essential hypertension 5. History of hyperlipidemia 6. Mild cardiomyopathy. 2D echo revealing 45 to 50%. Will follow-up outpatient with Dr. Schofield 7. Acute kidney injury. IV Lasix DC'd continue IV fluid at this time Hospital course Norman Whitaker is a 79-year-old male who presented to [facility] emergency room with a chief complaint of bilateral lower extremity swelling and erythema patient is a poor historian most history is obtained from medical record He was evaluated in the emergency room vital examination on presentation revealed temp 98.2, heart 69, respiratory rate 18, blood pressure 112/76 with a pulse ox of 96% on room air Laboratory data reveals white blood cell 9.2, hemoglobin 14.7, creatinine 0.97 and bun 24, BNP 114, UA negative Testing in the emergency room revealed chest x-ray completed showing cardiomegaly without acute pulmonary process. Venous Doppler completed showing negative for DVT Patient was admitted to medical floor for further evaluation and treatment. 2D echo ordered vascular surgery consulted Past medical history is significant for developmental delay hypothyroidism, essential hypertension and hyperlipidemia On review of systems patient is alert and oriented x 3. Patient denies chest pain or shortness of breath. Patient denies nausea vomiting or diarrhea. Patient denies any urinary burning or frequency On 02/12/2025 patient was seen and examined on the medical floor, he reports improvement in bilateral lower extremity erythema edema and tenderness, otherwise he denies any complaints there is no fever or chills no headache or dizziness no chest pain no shortness of breath no cough no nausea or vomiting no abdominal pain no diarrhea and no urinary symptoms. Echocardiogram revealed mild LV systolic dysfunction with an ejection fraction of 45 to 50% and dilated right ventricle. Cardiology consultation was requested On 02/13/2025 patient is alert and oriented x 3. Cardiology services following will follow-up outpatient with echocardiogram result. IV Lasix have been DC'd per cardiology and patient started on IV fluid for ANA PAULA. Creatinine is trending down 1.7 we will continue IV fluid at this time. Patient denies chest pain or shortness of breath. Patient denies nausea vomiting or diarrhea. Patient denies any urinary burning or frequency On 02/14/2025 patient is alert and oriented x 3. Per cardiology will follow-up outpatient patient cleared for discharge from cardiology standpoint. Per cardiology continue to hold daughter diuretics. Patient to be discharged on Keflex for 1 week patient to follow-up with PCP and consulting providers for further management. Creatinine at discharge 1.40 bun 23 Patient Condition at Discharge: Stable Plan - Discharge Summary Discharge Rx Participant: Yes New Discharge Prescriptions: New Cephalexin [Keflex] 500 mg PO Q12HR 7 Days #14 cap Continue Aspirin EC [Ecotrin Low Dose] 81 mg PO DAILY Levothyroxine Sodium [Synthroid] 25 mcg PO DAILY Cholecalciferol (Vitamin D3) [Vitamin D3 (3000 Iu)] 75 mcg PO DAILY Atorvastatin [Lipitor] 40 mg PO DAILY 30 Days #30 tab Vitamin E (Dl,Tocopheryl Acet) [Vitamin E (400 Iu = 180 mg)] 400 unit PO DAILY Calcium Carbonate [Calcium] 600 mg PO DAILY Cyanocobalamin (Vitamin B-12) [Vitamin B-12] 1,000 mcg PO DAILY Losartan [Cozaar] 50 mg PO DAILY Multivitamins, Thera [Multivitamin (formulary)] 1 tab PO DAILY Primidone [Mysoline] 50 mg PO HS Discharge Medication List Aspirin EC [Ecotrin Low Dose] 81 mg PO DAILY 12/21/24 [History] Cholecalciferol (Vitamin D3) [Vitamin D3 (3000 Iu)] 75 mcg PO DAILY 12/21/24 [History] Levothyroxine Sodium [Synthroid] 25 mcg PO DAILY 12/21/24 [History] Losartan [Cozaar] 50 mg PO DAILY 12/21/24 [History] Atorvastatin [Lipitor] 40 mg PO DAILY 30 Days #30 tab 12/24/24 [Rx] Calcium Carbonate [Calcium] 600 mg PO DAILY 02/10/25 [History] Cyanocobalamin (Vitamin B-12) [Vitamin B-12] 1,000 mcg PO DAILY 02/10/25 [History] Multivitamins, Thera [Multivitamin (formulary)] 1 tab PO DAILY 02/10/25 [History] Primidone [Mysoline] 50 mg PO HS 02/10/25 [History] Vitamin E (Dl,Tocopheryl Acet) [Vitamin E (400 Iu = 180 mg)] 400 unit PO DAILY 02/10/25 [History] Cephalexin [Keflex] 500 mg PO Q12HR 7 Days #14 cap 02/14/25 [Rx] Follow up Appointment(s)/Referral(s): Olive Raymundo MD [Primary Care Provider] - 1-2 days Gerard Flro MD [STAFF PHYSICIAN] - 1 Week Patient Instructions/Handouts: Leg Edema (ED) Discharge Disposition: HOME SELF-CARE
== END 2025-02-14 10:53 | disposition home or self-care (01) ==
LOC: EEVIPCON 11:46 → EC 11:46 → 6NMEDSUR 18:01
PROVIDERS: ADMIT Internal Medicine; ATTEND Internal Medicine
DX: R60.0 Localized edema (principal); R62.50 Unspecified lack of expected normal physiological development in childhood; E03.9 Hypothyroidism, unspecified; I10 Essential (primary) hypertension; E78.5 Hyperlipidemia, unspecified; I42.9 Cardiomyopathy, unspecified; N17.9 Acute kidney failure, unspecified; Z79.82 Long term (current) use of aspirin; Z79.890 Hormone replacement therapy; Z79.899 Other long term (current) drug therapy
CPT/HCPCS: 96376 ×4; 96361; 96365; 96366 ×3; 96372 ×3; 96374; 96375 ×2; 99285; 36415; 93005; 83880; 80053 ×5; 83735; 84100; 85025 ×5; 81003; 71046; 93970; G0378 ×5; C8929; J2270; J1940 ×4; J0690 ×4; J1650 ×3; Q9957; 93306